=== PATIENT | male | born 1950 | race Caucasian/White ===

== ENCOUNTER 2016-08-04 09:11 | Emergency (ER) | payer OTHER ==
[~2016-08-04] VITALS: Ht 188 cm; Wt 113.6 kg
[~2016-08-04 09:11] MED LIST: ARICEPT10 MG PO; CENTRUM SILVER1 TAB PO; GLUCOPHAGE500 MG/TAB PO; GLUCOTROL10 MG PO; PREVAGEN PO; VITAMIN D 1001000 IU PO; ZESTRIL 20MG TA20 MG PO; [UNRECOGNIZED DRUG - OTHER]
[2016-08-04 09:30] VITALS: TEMP 97.6
[2016-08-04 09:32] LABS: BASO % 0.3 % (0.0-2.0); EOS # 0.2 (0.0-0.7); EOS % 1.8 % (0-4.0); GRAN # 9.4 (1.4-6.5); GRAN % 79.6 % (42.2-75.2); LYMPH # 1.3 (1.2-3.4); LYMPH % 11.2 % (20.0-51.0); MEAN CELL VOLUME 86 fl (80.0-100.0); MEAN CORPUSCULAR HGB CONC 35 g/dl (33.0-37.0); MEAN PLATELET VOLUME 9.7 fl (7.4-10.4); MONO # 0.8 (0.1-0.6); MONO % 6.6 % (1.7-9.3); PLATELET COUNT 177 K/mm3 (130-400); RED BLOOD COUNT 3.55 M/mm3 (4.20-5.60); REDCELL DISTRIBUTION WIDTH-CV 12.8 % (11.5-14.5); WHITE BLOOD COUNT 11.8 K/mm3 (4.8-10.8)
[2016-08-04 09:41] LABS: HEMATOCRIT 30.6 % (42.0-52.0); HEMOGLOBIN 10.6 g/dl (13.5-18.0); MEAN CORPUSCULAR HEMOGLOBIN 30 pg (27.0-31.0)
[2016-08-04 09:43] LABS: INR 1.2 (0.8-3.0); PROTHROMBIN TIME 12.9 SECONDS (9.7-12.8)
[2016-08-04 09:46] LABS: ADJUSTED CALCIUM 9.5 mg/dL (8.4-10.2); ALANINE AMINOTRANSFERASE 24 U/L (21-72); ALBUMIN 4.1 gm/dL (3.5-5.0); ALKALINE PHOSPHATASE 64 U/L (50-136); ANION GAP 17 mmol/L (7-16); BILIRUBIN,TOTAL 0.9 mg/dL (0.0-1.0); BLOOD UREA NITROGEN 40 mg/dL (9-20); CALCIUM 9.6 mg/dL (8.4-10.2); CARBON DIOXIDE 17 mmol/L (22-30); CHLORIDE 104 mmol/L (98-107); CREATININE, serum 2.04 mg/dL (0.66-1.25); GLUCOSE 206 mg/dL (74-106); PARTIAL THROMBOPLASTIN TIME 27.4 SECONDS (26.0-37.0); POTASSIUM 3.8 mmol/L (3.4-5.0); SODIUM 138 mmol/L (137-145); TOTAL PROTEIN 7.5 gm/dL (6.4-8.2)
[2016-08-04 10:01] LABS: TROPONIN-I < 0.012 ng/mL (0.000-0.034)
[2016-08-04 10:03] VITALS: BP 112/60; PULSE 62
== END 2016-08-04 10:03 | disposition short-term general hospital (02) ==
LOC: COL.ER 09:11
PROVIDERS: Emergency Medicine
DX: I21.19 ST elevation (STEMI) myocardial infarction involving other coronary artery of inferior wall (principal); I10 Essential (primary) hypertension; E11.9 Type 2 diabetes mellitus without complications; E78.5 Hyperlipidemia, unspecified; Z79.84 Long term (current) use of oral hypoglycemic drugs
CPT/HCPCS: J1644; J2270; J2405; J3101; J7030

== ENCOUNTER 2016-08-28 13:00 | Outpatient (RCR) | payer MEDICARE, OTHER | END 2016-11-14 | disposition home or self-care (01) | LOC: COL.CR | DX: I21.19 ST elevation (STEMI) myocardial infarction involving other coronary artery of inferior wall (principal); Z95.5 Presence of coronary angioplasty implant and graft ==

== ENCOUNTER 2018-06-16 10:43 | Emergency (ER) | payer MEDICARE, OTHER ==
[~2018-06-16] VITALS: Ht 190.5 cm; Wt 127.3 kg
[2018-06-16 10:46] VITALS: BP 134/71; TEMP 97.4
[2018-06-16] MEDS ORDERED: NOVOLOG 100U100 U/M1 SQ (11:07)
[2018-06-16] MEDS ORDERED: LANTUS100 U/ML SQ (11:07)
[2018-06-16] MEDS ORDERED: KAPSPARGO SPRIN25 MG (11:09)
[2018-06-16 11:10] LABS: ARTERIAL BLD GAS O2 SATURATION 91.1 % (92-100); ARTERIAL BLD GAS TCO2 CT 18.2; ARTERIAL BLOOD GAS BASE EXCESS -8.5 (-2-2); ARTERIAL BLOOD GAS HCO3 17.1 meq/L (22-26); ARTERIAL BLOOD GAS PCO2 35.7 mmHg (35-45); ARTERIAL BLOOD GAS PO2 65.5 mmHg (80-100)
[2018-06-16 11:38] LABS: BASO # 0.1 (0.0-0.2); BASO % 0.7 % (0.0-2.0); EOS # 0.3 (0.0-0.7); EOS % 4.5 % (0-4.0); GRAN # 4.6 (1.4-6.5); GRAN % 67.5 % (42.2-75.2); HEMATOCRIT 31.3 % (42.0-52.0); HEMOGLOBIN 10.5 g/dl (13.5-18.0); LYMPH # 1.4 (1.2-3.4); LYMPH % 19.9 % (20.0-51.0); MEAN CELL VOLUME 90 fl (80.0-100.0); MEAN CORPUSCULAR HEMOGLOBIN 30 pg (27.0-31.0); MEAN CORPUSCULAR HGB CONC 34 g/dl (33.0-37.0); MONO # 0.5 (0.1-0.6); MONO % 6.8 % (1.7-9.3); PLATELET COUNT 145 K/mm3 (130-400); RED BLOOD COUNT 3.49 M/mm3 (4.20-5.60); REDCELL DISTRIBUTION WIDTH-CV 12.7 % (11.5-14.5)
[2018-06-16 11:46] LABS: INR 1.2 (0.8-3.0); PROTHROMBIN TIME 13.3 SECONDS (9.7-12.8)
[2018-06-16 11:49] LABS: ALANINE AMINOTRANSFERASE 23 U/L (21-72); ALBUMIN 3.8 gm/dL (3.5-5.0); ALKALINE PHOSPHATASE 82 U/L (50-136); ANION GAP 10 mmol/L (7-16); AST,SGOT 22 U/L (15-37); BILIRUBIN,TOTAL 0.3 mg/dL (0.0-1.0); BLOOD UREA NITROGEN 39 mg/dL (9-20); CALCIUM 8.8 mg/dL (8.4-10.2); CARBON DIOXIDE 18 mmol/L (22-30); CHLORIDE 108 mmol/L (98-107); CREATININE, serum 2.28 mg/dL (0.66-1.25); GLUCOSE 263 mg/dL (74-106); POTASSIUM 4.5 mmol/L (3.4-5.0); SODIUM 136 mmol/L (137-145); TOTAL PROTEIN 7.1 gm/dL (6.4-8.2)
[2018-06-16 12:01] LABS: TROPONIN-I < 0.012 ng/mL (0.000-0.035)
[2018-06-16] MEDS ORDERED: PROSCAR 5MG5 MG PO (13:38)
[2018-06-16] MEDS ORDERED: LIPITOR 80MG80 MG PO (13:40)
[2018-06-16] MEDS ORDERED: NORVASC 10MG10 MG PO (13:41)
[2018-06-16] MEDS ORDERED: SODIUM BICARBO650 MG PO (13:41)
[2018-06-16] MEDS ORDERED: FLOMAX 0.40.4 MG/CAP PO (13:42)
[2018-06-16 14:45] VITALS: PULSE 89
== END 2018-06-16 14:45 | disposition short-term general hospital (02) ==
LOC: COL.ER 10:43
PROVIDERS: Family Medicine
DX: R55 Syncope and collapse (principal); E88.9 Metabolic disorder, unspecified; Z79.4 Long term (current) use of insulin; Z86.711 Personal history of pulmonary embolism
CPT/HCPCS: J7030

== ENCOUNTER 2018-07-04 10:40 | Emergency (ER) | payer MEDICARE, OTHER ==
[~2018-07-04] VITALS: Ht 188 cm; Wt 138.6 kg
[~2018-07-04 10:40] MED LIST changes: +FLOMAX 0.40.4 MG/CAP PO; +KAPSPARGO SPRIN25 MG; +LANTUS100 U/ML SQ; +LIPITOR 80MG80 MG PO; +NORVASC 10MG10 MG PO; +NOVOLOG 100U100 U/M1 SQ; +PROSCAR 5MG5 MG PO; +SODIUM BICARBO650 MG PO
[2018-07-04 10:41] VITALS: TEMP 96.7
[2018-07-04 11:25] LABS: BASO % 0.5 % (0.0-2.0); EOS # 0.2 (0.0-0.7); EOS % 2.7 % (0-4.0); GRAN # 5.9 (1.4-6.5); GRAN % 78.4 % (42.2-75.2); HEMATOCRIT 29.1 % (42.0-52.0); HEMOGLOBIN 9.8 g/dl (13.5-18.0); LYMPH # 0.9 (1.2-3.4); LYMPH % 11.7 % (20.0-51.0); MEAN CELL VOLUME 90 fl (80.0-100.0); MEAN CORPUSCULAR HEMOGLOBIN 30 pg (27.0-31.0); MEAN CORPUSCULAR HGB CONC 34 g/dl (33.0-37.0); MEAN PLATELET VOLUME 9.8 fl (7.4-10.4); MONO # 0.5 (0.1-0.6); MONO % 6.4 % (1.7-9.3); PLATELET COUNT 137 K/mm3 (130-400); RED BLOOD COUNT 3.22 M/mm3 (4.20-5.60); REDCELL DISTRIBUTION WIDTH-CV 13.1 % (11.5-14.5)
[2018-07-04 11:48] LABS: ALANINE AMINOTRANSFERASE 16 U/L (21-72); ALBUMIN 3.8 gm/dL (3.5-5.0); ALKALINE PHOSPHATASE 68 U/L (50-136); ANION GAP 11 mmol/L (7-16); AST,SGOT 23 U/L (15-37); BILIRUBIN,TOTAL 0.4 mg/dL (0.0-1.0); BLOOD UREA NITROGEN 41 mg/dL (9-20); CALCIUM 9.1 mg/dL (8.4-10.2); CARBON DIOXIDE 21 mmol/L (22-30); CHLORIDE 109 mmol/L (98-107); CREATININE, serum 2.35 mg/dL (0.66-1.25); GLUCOSE 134 mg/dL (74-106); POTASSIUM 4.1 mmol/L (3.4-5.0); SODIUM 141 mmol/L (137-145); TOTAL PROTEIN 6.9 gm/dL (6.4-8.2)
[2018-07-04 12:22] LABS: MAGNESIUM 1.7 mg/dL (1.6-2.3)
[2018-07-04 12:52] LABS: COLLECTION METHOD CLEAN CATCH
[2018-07-04 13:14] LABS: MUCOUS Present /lpf; PH 5 (5-8); SQUAMOUS EPITHELIAL 0-2 /hpf; URINE APPEARANCE Cloudy; URINE BACTERIA Occasional /hpf; URINE BILIRUBIN Negative (NEGATIVE); URINE BLOOD 1+ (NEGATIVE); URINE COLOR Yellow; URINE GLUCOSE Negative (NEGATIVE); URINE KETONE Negative (NEGATIVE); URINE LEUKOCYTE ESTERASE 3+ (NEGATIVE); URINE NITRATE Negative (NEGATIVE); URINE PROTEIN(semi-quant) 2+ (NEGATIVE); URINE UROBILINOGEN Negative (NEGATIVE)
[2018-07-04 13:17] LABS: C-REACTIVE PROTEIN 1.5 mg/dL (0.0-0.9); LIPASE 73 U/L (23-300)
[2018-07-04 13:19] LABS: TROPONIN-I < 0.012 ng/mL (0.000-0.035)
[2018-07-04] MEDS ORDERED: AMOXICILLIN/CLA1 TA1 PO (16:02)
[2018-07-04] MEDS ORDERED: ZOFRAN ODT4 MG PO (16:02)
[2018-07-04] MEDS ORDERED: NORCO 325 MG-51 TAB PO (16:02)
[2018-07-04 16:20] VITALS: BP 130/62; PULSE 56
== END 2018-07-04 16:22 | disposition home or self-care (01) ==
LOC: COL.ER 10:40
PROVIDERS: Emergency Medicine
DX: N12 Tubulo-interstitial nephritis, not specified as acute or chronic (principal); K57.92 Diverticulitis of intestine, part unspecified, without perforation or abscess without bleeding; E78.00 Pure hypercholesterolemia, unspecified; J44.9 Chronic obstructive pulmonary disease, unspecified; E11.9 Type 2 diabetes mellitus without complications; Z79.4 Long term (current) use of insulin; Z86.711 Personal history of pulmonary embolism
CPT/HCPCS: J0696; J3010; J7030

== ENCOUNTER 2018-11-11 11:30 | Emergency (ER) | payer MEDICARE ==
[~2018-11-11] VITALS: Ht 188 cm; Wt 129.5 kg
[~2018-11-11 11:30] MED LIST changes: +AMOXICILLIN/CLA1 TA1 PO; +NORCO 325 MG-51 TAB PO; +ZOFRAN ODT4 MG PO
[2018-11-11 11:34] VITALS: TEMP 97.3
[2018-11-11 12:36] LABS: BASO # 0.1 (0.0-0.2); BASO % 0.7 % (0.0-2.0); EOS # 0.2 (0.0-0.7); EOS % 2.2 % (0-4.0); GRAN # 4.6 (1.4-6.5); GRAN % 66.9 % (42.2-75.2); HEMATOCRIT 32.5 % (42.0-52.0); LYMPH # 1.4 (1.2-3.4); LYMPH % 20.9 % (20.0-51.0); MEAN CELL VOLUME 89 fl (80.0-100.0); MEAN CORPUSCULAR HEMOGLOBIN 30 pg (27.0-31.0); MEAN CORPUSCULAR HGB CONC 34 g/dl (33.0-37.0); MEAN PLATELET VOLUME 10.3 fl (7.4-10.4); MONO # 0.6 (0.1-0.6); PLATELET COUNT 154 K/mm3 (130-400); RED BLOOD COUNT 3.65 M/mm3 (4.20-5.60); REDCELL DISTRIBUTION WIDTH-CV 12.9 % (11.5-14.5)
[2018-11-11 12:43] LABS: ALANINE AMINOTRANSFERASE 15 U/L (21-72); ALBUMIN 4.1 gm/dL (3.5-5.0); ALKALINE PHOSPHATASE 79 U/L (50-136); ANION GAP 12 mmol/L (7-16); AST,SGOT 20 U/L (15-37); BILIRUBIN,TOTAL 0.4 mg/dL (0.0-1.0); BLOOD UREA NITROGEN 51 mg/dL (9-20); CALCIUM 9.4 mg/dL (8.4-10.2); CARBON DIOXIDE 18 mmol/L (22-30); CHLORIDE 111 mmol/L (98-107); CREATININE, serum 2.65 (0.66-1.25); GLUCOSE 114 mg/dL (74-106); LIPASE 131 U/L (23-300); POTASSIUM 4.2 mmol/L (3.4-5.0); SODIUM 141 mmol/L (137-145); TOTAL PROTEIN 7.4 gm/dL (6.4-8.2)
[2018-11-11 13:05] LABS: TROPONIN-I < 0.012 ng/mL (0.000-0.035)
[2018-11-11 17:00] VITALS: BP 132/81
[2018-11-11 17:30] VITALS: PULSE 55
== END 2018-11-11 17:35 | disposition home or self-care (01) ==
LOC: COL.ER 11:30
PROVIDERS: Emergency Medicine
DX: E11.9 Type 2 diabetes mellitus without complications (principal); R10.0 Acute abdomen; I10 Essential (primary) hypertension; E11.649 Type 2 diabetes mellitus with hypoglycemia without coma; Z91.14 Patient's other noncompliance with medication regimen; Z79.4 Long term (current) use of insulin; Z87.891 Personal history of nicotine dependence
CPT/HCPCS: J2270; J2405; J2550; J7030

== ENCOUNTER 2019-03-24 10:59 | Emergency (ER) | payer OTHER ==
[~2019-03-24] VITALS: Ht 188 cm; Wt 127.3 kg
[2019-03-24 11:07] VITALS: BP 172/88; TEMP 97
[2019-03-24] MEDS ORDERED: BACTROBAN15 GM TOP (11:38)
[2019-03-24 11:51] VITALS: PULSE 68
== END 2019-03-24 11:50 | disposition home or self-care (01) ==
LOC: COL.ER 10:59
DX: L01.00 Impetigo, unspecified (principal); E11.9 Type 2 diabetes mellitus without complications; I10 Essential (primary) hypertension; Z87.891 Personal history of nicotine dependence; Z79.4 Long term (current) use of insulin

== ENCOUNTER 2019-05-07 16:05 | Emergency (ER) | payer OTHER ==
[~2019-05-07] VITALS: Ht 188 cm; Wt 126.4 kg
[~2019-05-07 16:05] MED LIST changes: +BACTROBAN15 GM TOP
[2019-05-07 16:22] VITALS: BP 133/83; PULSE 67; TEMP 97.2
== END 2019-05-07 16:30 | disposition home or self-care (01) ==
LOC: COL.ER 16:05
DX: Z23 Encounter for immunization (principal)

== ENCOUNTER 2019-05-11 04:53 | Emergency (ER) | payer OTHER ==
[~2019-05-11] VITALS: Ht 188 cm; Wt 126.4 kg
[2019-05-11 05:04] VITALS: BP 161/78; TEMP 97.6
[2019-05-11 06:13] LABS: BASO # 0.1 (0.0-0.2); BASO % 0.6 % (0.0-2.0); EOS # 0.3 (0.0-0.7); EOS % 3.9 % (0-4.0); GRAN # 5.8 (1.4-6.5); LYMPH # 1.5 (1.2-3.4); LYMPH % 17.7 % (20.0-51.0); MEAN CELL VOLUME 87 fl (80.0-100.0); MEAN CORPUSCULAR HGB CONC 33 g/dl (33.0-37.0); MONO # 0.7 (0.1-0.6); MONO % 8.4 % (1.7-9.3); PLATELET COUNT 180 K/mm3 (130-400); RED BLOOD COUNT 3.45 M/mm3 (4.20-5.60); REDCELL DISTRIBUTION WIDTH-CV 13.2 % (11.5-14.5)
[2019-05-11 06:26] LABS: ALBUMIN 3.9 gm/dL (3.5-5.0); BILIRUBIN,TOTAL 0.2 mg/dL (0.0-1.0); CALCIUM 9.3 mg/dL (8.4-10.2); CREATININE, serum 2.67 (0.66-1.25); POTASSIUM 4.1 mmol/L (3.4-5.0); TOTAL PROTEIN 7.4 gm/dL (6.4-8.2)
[2019-05-11 06:45] LABS: HEMOGLOBIN 9.9 g/dl (13.5-18.0); MEAN CORPUSCULAR HEMOGLOBIN 29 pg (27.0-31.0)
[2019-05-11] MEDS ORDERED: PROAIR HFA0.09 MG/AC IH (06:56)
[2019-05-11] MEDS ORDERED: ZITHROMAX 250M250 MG PO (06:56)
[2019-05-11] MEDS ORDERED: PREDNISONE20 MG PO (06:56)
[2019-05-11 07:01] VITALS: PULSE 66
== END 2019-05-11 07:15 | disposition home or self-care (01) ==
LOC: COL.ER 04:53
PROVIDERS: Emergency Medicine
DX: J44.1 Chronic obstructive pulmonary disease with (acute) exacerbation (principal); J06.9 Acute upper respiratory infection, unspecified; E11.22 Type 2 diabetes mellitus with diabetic chronic kidney disease; N18.9 Chronic kidney disease, unspecified; Z79.4 Long term (current) use of insulin

== ENCOUNTER 2020-03-22 15:48 | Inpatient (IN) | payer OTHER ==
[~2020-03-22] VITALS: Ht 188 cm; Wt 124.8 kg
[~2020-03-22 15:48] MED LIST changes: +PREDNISONE20 MG PO; +PROAIR HFA0.09 MG/AC IH; +ZITHROMAX 250M250 MG PO
[2020-03-22 16:04] LABS: BASO % 0.3 % (0.0-2.0); EOS # 0.2 (0.0-0.7); EOS % 2.2 % (0-4.0); GRAN # 9.3 (1.4-6.5); GRAN % 88.1 % (42.2-75.2); HEMOGLOBIN 10.5 g/dl (13.5-18.0); LYMPH # 0.8 (1.2-3.4); LYMPH % 7.8 % (20.0-51.0); MEAN CELL VOLUME 87 fl (80.0-100.0); MEAN CORPUSCULAR HEMOGLOBIN 29 pg (27.0-31.0); MEAN CORPUSCULAR HGB CONC 34 g/dl (33.0-37.0); MEAN PLATELET VOLUME 9.9 fl (7.4-10.4); MONO # 0.1 (0.1-0.6); MONO % 1.2 % (1.7-9.3); PLATELET COUNT 192 K/mm3 (130-400); RED BLOOD COUNT 3.57 M/mm3 (4.20-5.60); REDCELL DISTRIBUTION WIDTH-CV 13.3 % (11.5-14.5)
[2020-03-22 16:05] LABS: HEMATOCRIT 30.9 % (42.0-52.0)
[2020-03-22 16:08] LABS: INR 1.1 (0.8-3.0); PROTHROMBIN TIME 12.1 SECONDS (9.7-12.8)
[2020-03-22 16:16] LABS: ALANINE AMINOTRANSFERASE 18 U/L (4-49); ALBUMIN 4.3 gm/dL (3.5-5.0); ALKALINE PHOSPHATASE 97 U/L (50-136); ANION GAP 14 mmol/L (7-16); AST,SGOT 23 U/L (15-37); BILIRUBIN,TOTAL 0.4 mg/dL (0.0-1.0); BLOOD UREA NITROGEN 42 mg/dL (9-20); C-REACTIVE PROTEIN 1.4 mg/dL (0.0-0.9); CALCIUM 8.9 mg/dL (8.4-10.2); CARBON DIOXIDE 15 mmol/L (22-30); CHLORIDE 106 mmol/L (98-107); CREATININE, serum 2.54 (0.66-1.25); GLUCOSE 277 mg/dL (74-106); LIPASE 114 U/L (23-300); POTASSIUM 4.2 mmol/L (3.4-5.0); SODIUM 135 mmol/L (137-145); TOTAL PROTEIN 7.8 gm/dL (6.4-8.2)
[2020-03-22 16:25] LABS: TROPONIN-I < 0.012 ng/mL (0.000-0.035)
[2020-03-22 17:47] LABS: COLLECTION METHOD CLEAN CATCH
[2020-03-22 17:58] LABS: MUCOUS Present /lpf; PH 5 (5-8); SQUAMOUS EPITHELIAL None Seen /hpf; URINE APPEARANCE Cloudy; URINE BACTERIA Many /hpf; URINE BILIRUBIN Negative (NEGATIVE); URINE BLOOD 3+ (NEGATIVE); URINE COLOR Yellow; URINE GLUCOSE 3+ (NEGATIVE); URINE KETONE Negative (NEGATIVE); URINE LEUKOCYTE ESTERASE 1+ (NEGATIVE); URINE NITRATE Negative (NEGATIVE); URINE PROTEIN(semi-quant) 3+ (NEGATIVE); URINE RBC >50 /hpf; URINE UROBILINOGEN Negative (NEGATIVE)
[2020-03-22 22:38] VITALS: BP 99/60; PULSE 74; TEMP 98.1
[2020-03-22] MEDS ORDERED: GLUCOPHAGE1000 MG PO (22:57)
--- NOTE | 2020-03-22 22:58 | NUR ---
Vancomycin Initial Dosing Pharmacy Note Ordering provider: Amena Benton MD Indication/duration: UTI, 7 days Relevant comorbidities: CKD LABS: WBC = 10.5, SCr = 2.54, est CrCl = 38 Recommendation: Will draw troughs and adjust based on levels. Loading dose: 1 gram @ 2000 plus 1.5 grams scheduled for 0 Maintenance dose: 2 grams every 24 hours Trough goal: 10-15 ug/mL
--- NOTE | 2020-03-22 23:00 | NUR ---
Arrived to medical floor. Assessment complete. Lungs clear. Heart sounds normal. Bowels active x4. Pulses present throughout. Bilateral lower ext edema +1. IV right forearm without complications. Denies pain at this time. Denies needs. Orientated to medical floor. All questions answered. Unsure of medication list. not home tonight. will provide medication list in AM. Ellen notified.
[2020-03-23] VITALS (268 sets, daily range): BP systolic 108–181; BP diastolic 53–106; PULSE 58–114; TEMP 97.4–99.8; O2SAT 85–98
--- NOTE | 2020-03-23 02:15 | NUR ---
Resting in bed. Denies needs. Call light in reach.
--- NOTE | 2020-03-23 05:27 | NUR ---
Patient had uneventful night. Resting in bed this Am. Call light in reach.
[2020-03-23 06:42] LABS: BASO # 0.1 (0.0-0.2); BASO % 0.5 % (0.0-2.0); EOS # 0.2 (0.0-0.7); GRAN # 8.8 (1.4-6.5); GRAN % 80.7 % (42.2-75.2); HEMATOCRIT 27.3 % (42.0-52.0); LYMPH # 1.2 (1.2-3.4); LYMPH % 10.7 % (20.0-51.0); MEAN CELL VOLUME 88 fl (80.0-100.0); MEAN CORPUSCULAR HEMOGLOBIN 29 pg (27.0-31.0); MEAN CORPUSCULAR HGB CONC 33 g/dl (33.0-37.0); MEAN PLATELET VOLUME 10.4 fl (7.4-10.4); MONO # 0.6 (0.1-0.6); MONO % 5.7 % (1.7-9.3); PLATELET COUNT 169 K/mm3 (130-400); RED BLOOD COUNT 3.09 M/mm3 (4.20-5.60); REDCELL DISTRIBUTION WIDTH-CV 13.7 % (11.5-14.5)
[2020-03-23 06:57] LABS: CREATININE, serum 2.64 (0.66-1.25)
--- NOTE | 2020-03-23 07:13 | NUR ---
Report given to DEVIN De La Cruz
--- NOTE | 2020-03-23 07:40 | NUR ---
Pt. alert, sitting in bed. Assessment as charted. Bilat. lower extremeties. 1+ pitting edema noted. Pt. assisted to recliner to elevate legs. IV site patent Rt. hand. NS infusing @ 125mL/hr. Pt. voices no acute concerns.
--- NOTE | 2020-03-23 08:00 | NUR ---
PT PLEASANT, AOX4, REPORTS PAIN 3/10 IN LOW BACK, PT TOOK PILLS WITH WATER, IV MEDICATION HANGING, VITALS TAKEN, ASSESSMENT PERFORMED, NO OTHER NEEDS AT THIS TIME.
--- NOTE | 2020-03-23 10:21 | NUR ---
DEVONTE met with the patient to discuss discharge plan. The patient lives in [place] with his , Jaylene (ph#[phone]). He reports independence with ADLs and has a walker and CPAP from the [facility]. The patient receives primary care at the [facility]. He states his provider is a Dr. Cordero. He receives his medications by mail from the [facility]. The patient does not have a DPOA-HC in EMR, but he states that he does have one completed and that his is his DPOA-HC. The patient plans to return home with his upon discharge. The patient's , Jaylene, then entered the patient's room. Jaylene confirmed the above information. Jaylene states that she would be interested in some home health services for the patient. She states that she would like for an RN to come out and help with medication management and set up. The patient has [employer] for insurance. DEVONTE informed the patient and Jaylene how the [facility] will have to approve this. The patient and Jaylene verbalized understanding. DEVONTE contacted the [facility]. The salon receptionist reports that Dr. Cordero's last day was last Sunday and that the patient is now assigned to the provider, Hector Watson. The salon receptionist transferred DEVONTE to Walter's RN. DEVONTE left a voicemail for the RN. DEVONTE to continue to follow.
[2020-03-23] MEDS ORDERED: SINGULAIR 110 MG/TAB PO (11:09)
[2020-03-23] MEDS ORDERED: ASPIRIN E.C. 8181 MG PO (11:10)
[2020-03-23] MEDS ORDERED: NORCO 325 MG-7.1 TAB PO (11:26)
--- NOTE | 2020-03-23 13:15 | NUR ---
Assessment complete. Pt. awake and pleasent. Pt. alert and oriented, but confused about why he is here. Eventually recalled for UTI. Pt. has +1 edema bilateral LE. INT 125mL/hr clear dry and intact.
--- NOTE | 2020-03-23 14:43 | NUR ---
Shameka, RN with the [facility], returned DEVONTE's phone call. Shameka states that they will need orders for home health detention. She states that they will then set this up and follow up with the patient and his . . DEVONTE to update the patient and his .
--- NOTE | 2020-03-23 15:00 | NUR ---
entered pt room, pt shaking and groaning. pt had 5 blankets covering him and reported being very cold. pt able to respond to me when asking questions. vital signs abnormal, physician notified, pt to be transferred to icu. pt ripped out iv attempting to dry heave into trashcan. report called to ICU nurse. 1899 pt taken down to unit with chart.
--- NOTE | 2020-03-23 16:21 | NUR ---
PT HAD BLACK TARRY STOOL, PT NOT ON IRON, PT REPORTED THIS GOING ON FOR THE PAST FEW DAYS. PHYSICIAN NOTIFIED, HAT PLACED IN TOILET, HEMOCULT ORDERED.
[2020-03-23 17:41] LABS: ARTERIAL BLD GAS O2 SATURATION 95.4 % (92-100); ARTERIAL BLD GAS TCO2 CT 12.4; ARTERIAL BLOOD GAS BASE EXCESS -12.6 (-2-2); ARTERIAL BLOOD GAS HCO3 11.7 meq/L (22-26); ARTERIAL BLOOD GAS PCO2 23.2 mmHg (35-45); ARTERIAL BLOOD GAS PO2 79.4 mmHg (80-100); ARTERIAL BLOOD GAS pH 7.32 (7.35-7.45)
[2020-03-23 18:12] LABS: INR 1.1 (0.8-3.0)
--- NOTE | 2020-03-23 21:39 | NUR ---
PT WITH CRITICAL TROPONIN OF 0.587 CALLED TO RONEN HERNANDEZ. NEW ORDERS TO CONSULT CARDIOLOGY.
--- NOTE | 2020-03-23 21:39 | NUR ---
PT WITH BG FROM 205 TO 90, RONEN HERNANDEZ AWARE, SEE NEW ORDERS FOR D5.
--- NOTE | 2020-03-23 21:43 | NUR ---
CARDIOLOGY NOTIFIED OF NEW CONSULT AND TROPONIN CHANGES, DR. COLE WOULD LIKE NEXT TROPONIN AT 0600 AND WILL SEE IN THE MORNING.
[2020-03-23 22:35] LABS: ARTERIAL BLD GAS O2 SATURATION 94.8 % (92-100); ARTERIAL BLD GAS TCO2 CT 16.6; ARTERIAL BLOOD GAS BASE EXCESS -9.2 (-2-2); ARTERIAL BLOOD GAS HCO3 15.7 meq/L (22-26); ARTERIAL BLOOD GAS PCO2 30.3 mmHg (35-45); ARTERIAL BLOOD GAS PO2 76.1 mmHg (80-100); ARTERIAL BLOOD GAS pH 7.33 (7.35-7.45)
[2020-03-24] VITALS (358 sets, daily range): BP systolic 128–180; BP diastolic 65–86; PULSE 64–83; TEMP 97.8–99.6; O2SAT 79–99
[2020-03-24 04:56] LABS: ARTERIAL BLD GAS O2 SATURATION 96.2 % (92-100); ARTERIAL BLD GAS TCO2 CT 15.2; ARTERIAL BLOOD GAS BASE EXCESS -10.5 (-2-2); ARTERIAL BLOOD GAS HCO3 14.3 meq/L (22-26); ARTERIAL BLOOD GAS PO2 87.7 mmHg (80-100); ARTERIAL BLOOD GAS pH 7.31 (7.35-7.45)
--- NOTE | 2020-03-24 05:25 | NUR ---
called chantal and spoke with physican about abg and vbg results, as long as patient is comfortable was told to keep monitoring results.
[2020-03-24 05:34] LABS: INR 1.1 (0.8-3.0); PROTHROMBIN TIME 12.2 SECONDS (9.7-12.8)
[2020-03-24 05:40] LABS: ALBUMIN 3.1 gm/dL (3.5-5.0); BILIRUBIN,TOTAL 0.3 mg/dL (0.0-1.0); CALCIUM 7.5 mg/dL (8.4-10.2); CREATININE, serum 2.72 (0.66-1.25); POTASSIUM 3.5 mmol/L (3.4-5.0)
[2020-03-24 05:41] LABS: BASO % 0.3 % (0.0-2.0); EOS # 0.2 (0.0-0.7); EOS % 2.6 % (0-4.0); GRAN # 6.6 (1.4-6.5); GRAN % 74.7 % (42.2-75.2); LYMPH # 1.2 (1.2-3.4); LYMPH % 13.6 % (20.0-51.0); MEAN CELL VOLUME 91 fl (80.0-100.0); MEAN CORPUSCULAR HGB CONC 33 g/dl (33.0-37.0); MEAN PLATELET VOLUME 10.3 fl (7.4-10.4); MONO # 0.7 (0.1-0.6); MONO % 8.2 % (1.7-9.3); PLATELET COUNT 145 K/mm3 (130-400); RED BLOOD COUNT 2.77 M/mm3 (4.20-5.60); REDCELL DISTRIBUTION WIDTH-CV 13.7 % (11.5-14.5)
[2020-03-24 05:42] LABS: HEMATOCRIT 25.2 % (42.0-52.0); HEMOGLOBIN 8.3 g/dl (13.5-18.0); MEAN CORPUSCULAR HEMOGLOBIN 30 pg (27.0-31.0)
[2020-03-24 06:14] LABS: TROPONIN-I 0.495 ng/mL (0.000-0.035)
--- NOTE | 2020-03-24 11:20 | NUR ---
Tanbark Laborer attended clinical rounds with the team. The patient's came to visit the patient after rounds. Hospitalist met with her to follow up.
--- NOTE | 2020-03-24 21:00 | NUR ---
Patient alert and partially oriented to self and place. Is restless but mostly easily directed. Has attempted to get up from bed multiple times on his own. Bed alarm on. Reminded patient to please use call light. Patient states "ok I will" but has difficulty remembering instructions due to baseline dementia. Call light left within reach.
--- NOTE | 2020-03-24 22:30 | NUR ---
Patient restless and wanting to get up from bed to chair and back multiple times. Pulling at wires and loya catheter; states multiple times "I have to go to the bathroom!" Patient reminded that he has a catheter and demonstrated how it drains. Patient states he understands but will ask again after a few minutes. Patient also makes frequent and very loud vocalizations and moans. Reports lower back pain which is chronic. PRN [place] administered. Patient becomes also becomes very agitated when BP is taken. Systolics running in the 190's. Hospitalist notified of anxiety and elevated BP's; received PRN order for Ativan. Will continue to monitor. Call light left within reach and bed alarm on.
[2020-03-25] VITALS (238 sets, daily range): BP systolic 145–179; BP diastolic 67–823; PULSE 69–88; TEMP 98.3–99.7; O2SAT 74–100
[2020-03-25 04:46] LABS: BASO # 0.1 (0.0-0.2); BASO % 0.6 % (0.0-2.0); EOS # 0.2 (0.0-0.7); EOS % 2.3 % (0-4.0); GRAN # 5.8 (1.4-6.5); GRAN % 74.2 % (42.2-75.2); LYMPH % 12.7 % (20.0-51.0); MEAN CELL VOLUME 90 fl (80.0-100.0); MEAN CORPUSCULAR HGB CONC 33 g/dl (33.0-37.0); MEAN PLATELET VOLUME 10.1 fl (7.4-10.4); MONO # 0.8 (0.1-0.6); MONO % 9.7 % (1.7-9.3); PLATELET COUNT 133 K/mm3 (130-400); RED BLOOD COUNT 2.71 M/mm3 (4.20-5.60); REDCELL DISTRIBUTION WIDTH-CV 13.7 % (11.5-14.5)
[2020-03-25 04:49] LABS: HEMATOCRIT 24.3 % (42.0-52.0); MEAN CORPUSCULAR HEMOGLOBIN 30 pg (27.0-31.0)
[2020-03-25 04:58] LABS: ALBUMIN 3.2 gm/dL (3.5-5.0); BILIRUBIN,TOTAL 0.4 mg/dL (0.0-1.0); CALCIUM 7.7 mg/dL (8.4-10.2); CREATININE, serum 2.49 (0.66-1.25); POTASSIUM 3.6 mmol/L (3.4-5.0); TOTAL PROTEIN 6.1 gm/dL (6.4-8.2)
[2020-03-25 05:00] LABS: INR 1.2 (0.8-3.0); PROTHROMBIN TIME 13.4 SECONDS (9.7-12.8)
[2020-03-25 07:50] LABS: PHOSPHOROUS 3.1 mg/dL (2.5-4.5)
--- NOTE | 2020-03-25 09:05 | NUR ---
Inking Machine Tender attended clinical rounds with the team. The patient to transfer to the floor this day.
--- NOTE | 2020-03-25 12:39 | NUR ---
Dolan catheter discontinued at 1230 per doctors order.
[2020-03-25 17:40] LABS: HEMATOCRIT 25.1 % (42.0-52.0); HEMOGLOBIN 8.3 g/dl (13.5-18.0)
[2020-03-26] VITALS (7 sets, daily range): BP systolic 127–178; BP diastolic 56–90; PULSE 57–81; TEMP 97.8–99.2
[2020-03-26 07:05] LABS: BASO % 0.6 % (0.0-2.0); EOS # 0.4 (0.0-0.7); EOS % 5.6 % (0-4.0); GRAN # 4.6 (1.4-6.5); GRAN % 67.2 % (42.2-75.2); LYMPH # 1.1 (1.2-3.4); LYMPH % 16.5 % (20.0-51.0); MEAN CELL VOLUME 88 fl (80.0-100.0); MEAN CORPUSCULAR HGB CONC 33 g/dl (33.0-37.0); MEAN PLATELET VOLUME 10.5 fl (7.4-10.4); MONO # 0.7 (0.1-0.6); MONO % 9.5 % (1.7-9.3); PLATELET COUNT 136 K/mm3 (130-400); RED BLOOD COUNT 2.67 M/mm3 (4.20-5.60); REDCELL DISTRIBUTION WIDTH-CV 13.5 % (11.5-14.5)
[2020-03-26 07:12] LABS: HEMATOCRIT 23.6 % (42.0-52.0); HEMOGLOBIN 7.7 g/dl (13.5-18.0); MEAN CORPUSCULAR HEMOGLOBIN 29 pg (27.0-31.0)
--- NOTE | 2020-03-26 07:15 | NUR ---
CHANGE OF SHIFT REPORT GIVEN TO DAY SHIFT NURSEGAEL.
--- NOTE | 2020-03-26 07:15 | NUR ---
CHANGE OF SHIFT REPORT GIVEN TO DAY SHIFT NURSEPOOJA.
[2020-03-26 07:25] LABS: ALBUMIN 3.1 gm/dL (3.5-5.0); BILIRUBIN,TOTAL 0.5 mg/dL (0.0-1.0); CREATININE, serum 2.26 (0.66-1.25); POTASSIUM 3.6 mmol/L (3.4-5.0); TOTAL PROTEIN 6.1 gm/dL (6.4-8.2)
--- NOTE | 2020-03-26 08:19 | NUR ---
Patient sitting up in chair. He is reclined comfortably. Denies pain. Did well with breakfast. Very plesant. Leila Patel has rounded and seen patient. Medication changes made and reviewed with patient. He is voiding using urinal. Central line flushed & good blood return. Will monitor
--- NOTE | 2020-03-26 10:00 | NUR ---
Patient significant other at bedside. Patient reports a pain pill for chronic back & knee pain. Patient wanting to shower today. Jasiel Loja to assist.
--- NOTE | 2020-03-26 18:12 | NUR ---
Patient sitting up in chair eatin dinner & continues to do well. denies needs.
--- NOTE | 2020-03-26 20:00 | NUR ---
Report received, assumed care for shipper and receiving. Assessment complete. A&Ox3-drowsy. VS stable. Denies pain/nausea/shortness of breath. Voiding without difficulty-clear yellow urine. R IJ-3 ports flush without difficulty. Plan of care discussed for this shift to include HS meds/calling for needs. Verbalizes understanding-denies questions/concerns. Call light in reach. Will monitor.
[2020-03-27] VITALS: BP 132/54; PULSE 69; TEMP 98.8
[2020-03-27 04:51] VITALS: BP 125/66; PULSE 73; TEMP 97.8
--- NOTE | 2020-03-27 06:00 | NUR ---
Noted to be making a moaning/cough sound heard at nurses station. This nurse to room-patient is sleeping. Easily awakens-denies pain/shortness of breath. States he has been told on several occasions he makes these noises during sleep. Call light in reach. Will monitor.
[2020-03-27 06:38] LABS: BASO # 0.1 (0.0-0.2); EOS # 0.5 (0.0-0.7); EOS % 8.7 % (0-4.0); GRAN # 3.7 (1.4-6.5); GRAN % 59.8 % (42.2-75.2); LYMPH # 1.3 (1.2-3.4); LYMPH % 20.7 % (20.0-51.0); MEAN CELL VOLUME 88 fl (80.0-100.0); MEAN CORPUSCULAR HGB CONC 33 g/dl (33.0-37.0); MEAN PLATELET VOLUME 10.7 fl (7.4-10.4); MONO # 0.6 (0.1-0.6); MONO % 9.5 % (1.7-9.3); PLATELET COUNT 154 K/mm3 (130-400); RED BLOOD COUNT 2.68 M/mm3 (4.20-5.60); REDCELL DISTRIBUTION WIDTH-CV 13.4 % (11.5-14.5)
[2020-03-27 06:46] LABS: HEMATOCRIT 23.7 % (42.0-52.0); HEMOGLOBIN 7.8 g/dl (13.5-18.0); MEAN CORPUSCULAR HEMOGLOBIN 29 pg (27.0-31.0)
[2020-03-27 07:00] VITALS: BP 156/87; PULSE 82; TEMP 97.5
[2020-03-27 07:08] LABS: CALCIUM 8.2 mg/dL (8.4-10.2); CREATININE, serum 2.21 (0.66-1.25); POTASSIUM 3.4 mmol/L (3.4-5.0)
--- NOTE | 2020-03-27 09:11 | NUR ---
Patient sitting up in chair. Reports he is still hungry after breakfast. more cereal given. Pain manged. Will monitor
[2020-03-27] MEDS ORDERED: CIPRO 500MG TA500 MG PO (10:05)
[2020-03-27] MEDS ORDERED: NORCO 325 MG-51 TAB PO (10:54)
--- NOTE | 2020-03-27 11:35 | NUR ---
Patient ready for discharge. rounded & orders obtained. Discharge information given to patient & his . We reviewed home medication list & last dose taken & changes in insulin regiment. Patient to get Cipro from [facility] and take starting tonight. Patient aware he needs to [facility] and keep [facility]. Patient already had urology appt scheduled for to 09 of April. Central line was removed & he tolerated well. Patient wheeled out with all belongings. His taken him home
== END 2020-03-27 11:35 | disposition home or self-care (01) | DRG 871 ==
LOC: COL.ER 15:48 → MEDICAL 19:33 → ICU 03-23 17:24 → SURG 03-25 11:45
PROVIDERS: Emergency Medicine; Internal Medicine; Internal Medicine Pulmonary Disease; Physician Assistant; ADMIT Student in an Organized Health Care Education/Training Program
PROC: 02HV33Z Insertion of Infusion Device into Superior Vena Cava, Percutaneous Approach (ICD-10-PCS; principal; 2020-03-23)
DX: A41.9 Sepsis, unspecified organism (principal); I21.A1 Myocardial infarction type 2; N12 Tubulo-interstitial nephritis, not specified as acute or chronic; G93.40 Encephalopathy, unspecified; N18.4 Chronic kidney disease, stage 4 (severe); R65.20 Severe sepsis without septic shock; E11.22 Type 2 diabetes mellitus with diabetic chronic kidney disease; N40.0 Benign prostatic hyperplasia without lower urinary tract symptoms; E78.5 Hyperlipidemia, unspecified; J44.9 Chronic obstructive pulmonary disease, unspecified; I25.10 Atherosclerotic heart disease of native coronary artery without angina pectoris; D63.1 Anemia in chronic kidney disease; F03.90 Unspecified dementia, unspecified severity, without behavioral disturbance, psychotic disturbance, mood disturbance, and anxiety; Z20.828 Contact with and (suspected) exposure to other viral communicable diseases; Z95.5 Presence of coronary angioplasty implant and graft; Z87.891 Personal history of nicotine dependence; Z79.4 Long term (current) use of insulin
CPT/HCPCS: 99222-AI; 99232-AI; 99233-AI; G0378; J0696; J1644; J1815; J2060; J2185; J2405; J2543; J3370; J3475; J7030; J7040; J7042; J7050; J7120

== ENCOUNTER 2020-07-10 16:36 | Inpatient (IN) | payer OTHER ==
[~2020-07-10] VITALS: Ht 188 cm; Wt 95.5 kg
[~2020-07-10 16:36] MED LIST changes: +ASPIRIN E.C. 8181 MG PO; +CIPRO 500MG TA500 MG PO; +GLUCOPHAGE1000 MG PO; +NORCO 325 MG-7.1 TAB PO; +SINGULAIR 110 MG/TAB PO
[2020-07-10 17:02] LABS: COLLECTION METHOD CLEAN CATCH
[2020-07-10 17:04] LABS: BASO # 0.1 (0.0-0.2); BASO % 0.7 % (0.0-2.0); EOS # 0.1 (0.0-0.7); GRAN # 4.7 (1.4-6.5); GRAN % 67.5 % (42.2-75.2); LYMPH # 1.5 (1.2-3.4); LYMPH % 21.2 % (20.0-51.0); MEAN CELL VOLUME 85 fl (80.0-100.0); MEAN CORPUSCULAR HEMOGLOBIN 29 pg (27.0-31.0); MEAN CORPUSCULAR HGB CONC 35 g/dl (33.0-37.0); MEAN PLATELET VOLUME 10.8 fl (7.4-10.4); MONO # 0.6 (0.1-0.6); MONO % 8.3 % (1.7-9.3); PLATELET COUNT 175 K/mm3 (130-400); RED BLOOD COUNT 3.76 M/mm3 (4.20-5.60); REDCELL DISTRIBUTION WIDTH-CV 13.9 % (11.5-14.5)
[2020-07-10 17:05] LABS: HEMATOCRIT 31.9 % (42.0-52.0)
[2020-07-10 17:07] LABS: PROTHROMBIN TIME 11.6 SECONDS (9.7-12.8)
[2020-07-10 17:13] LABS: PH 6 (5-8); SQUAMOUS EPITHELIAL None Seen /hpf; URINE APPEARANCE Clear; URINE BACTERIA None Seen /hpf; URINE BILIRUBIN Negative (NEGATIVE); URINE BLOOD Negative (NEGATIVE); URINE COLOR Yellow; URINE GLUCOSE 3+ (NEGATIVE); URINE KETONE Negative (NEGATIVE); URINE LEUKOCYTE ESTERASE Negative (NEGATIVE); URINE NITRATE Negative (NEGATIVE); URINE PROTEIN(semi-quant) 3+ (NEGATIVE); URINE RBC 0-2 /hpf; URINE UROBILINOGEN Negative (NEGATIVE)
[2020-07-10 17:14] LABS: ALBUMIN 3.9 gm/dL (3.5-5.0); BILIRUBIN,TOTAL 0.4 mg/dL (0.0-1.0); CALCIUM 8.9 mg/dL (8.4-10.2); CREATININE, serum 2.93 (0.66-1.25); POTASSIUM 4.4 mmol/L (3.4-5.0)
[2020-07-10 18:01] LABS: TRICYCLIC ANTIDEPRESS URINE NEGATIVE
[2020-07-10 18:10] LABS: MAGNESIUM 1.8 mg/dL (1.6-2.3)
[2020-07-10 18:10] LABS: ARTERIAL BLD GAS O2 SATURATION 94.8 % (92-100); ARTERIAL BLOOD GAS BASE EXCESS -6.2 (-2-2); ARTERIAL BLOOD GAS HCO3 18.1 meq/L (22-26); ARTERIAL BLOOD GAS PCO2 31.6 mmHg (35-45); ARTERIAL BLOOD GAS PO2 71.6 mmHg (80-100); ARTERIAL BLOOD GAS pH 7.38 (7.35-7.45)
[2020-07-10 18:23] LABS: ACETONE,SERUM NEGATIVE
--- NOTE | 2020-07-10 22:17 | NUR ---
Awake, alert, oriented x 4, able to follow all commands, uncontrolled movement to L upper extremity at rest, able to follow commands with L upper extremity, BLE +1 trace edema noted, respirations even and unlabored, co 1/10 pain to R ribs, admits to recent fall on ice, no bruising evident at this time.
[2020-07-10 22:38] VITALS: BP 135/73; PULSE 85; TEMP 98.5
[2020-07-10 23:39] VITALS: BP 129/70; PULSE 69; TEMP 97.1
[2020-07-11] VITALS (7 sets, daily range): BP systolic 96–148; BP diastolic 37–90; PULSE 40–104; TEMP 96.9–98.5
[2020-07-11 06:45] LABS: ALBUMIN 3.5 gm/dL (3.5-5.0); BILIRUBIN,TOTAL 0.6 mg/dL (0.0-1.0); CALCIUM 8.6 mg/dL (8.4-10.2); CREATININE, serum 2.75 (0.66-1.25); POTASSIUM 3.9 mmol/L (3.4-5.0); TOTAL PROTEIN 6.5 gm/dL (6.4-8.2)
[2020-07-11 07:52] LABS: BASO # 0.1 (0.0-0.2); BASO % 1.1 % (0.0-2.0); EOS # 0.2 (0.0-0.7); HEMOGLOBIN 10.7 g/dl (13.5-18.0); LYMPH # 1.8 (1.2-3.4); LYMPH % 32.2 % (20.0-51.0); MEAN CELL VOLUME 86 fl (80.0-100.0); MEAN CORPUSCULAR HEMOGLOBIN 29 pg (27.0-31.0); MEAN CORPUSCULAR HGB CONC 34 g/dl (33.0-37.0); MEAN PLATELET VOLUME 10.4 fl (7.4-10.4); MONO # 0.6 (0.1-0.6); MONO % 10.3 % (1.7-9.3); PLATELET COUNT 146 K/mm3 (130-400); RED BLOOD COUNT 3.69 M/mm3 (4.20-5.60); REDCELL DISTRIBUTION WIDTH-CV 13.8 % (11.5-14.5)
[2020-07-11 07:56] LABS: HEMATOCRIT 31.8 % (42.0-52.0)
--- NOTE | 2020-07-11 10:00 | NUR ---
Assessment completed, alert/oriented, vital signs stable, reports pain to right ribs is improved and minimal/tolerable at this time, at rest patient has minimal dyskinetic movements of left upper extrm. as he became more awake and alert this morning the movements and stuttering speech have became more pronounced, no other neurological symptoms or deficits noted, heart RRR, lungs CTA/ no reps.difficuly, he ate breakfst and is scheduled for a CT scan this morning, denies other needs at this time
--- NOTE | 2020-07-11 11:56 | NUR ---
SW met with patient to conduct intake evaluation. Patient lives at home in [place] with Jaylene (P# [phone]). Patient states that his Jaylene has DPOA paperwork. SW requested that patient contact to have her bring/fax in DPOA paperwork. [facility] is [facility] and has PCP through [place]. Patient uses [facility] for pharmacy and denies problems affording medications. Patient uses walker and a CPAP obtained through [facility]. Patient denies needing assistance with ADLs. Patient reported that he plans to contact [facility] caregivers for in-home caregiving assistance. Patient denies questions or concerns. RN reported that patient has unusual psychomotor movements, but that they are only evident when patient is talking and moving. RN feels that this is more psychosomatic than anything neurological as it ceases when patient is at rest. RN reported that patient is stressed out regarding feelings of his third cheating on him. Social work will continue to follow as needs progress.
--- NOTE | 2020-07-11 19:48 | NUR ---
Sitting in chair, ambulating independently in room, minimul uncontrolled movement to L arm noted at this time, bedtime snack offered, no s/s of hypo/hyper glycemia, denies need for pain medications at this time.
--- NOTE | 2020-07-11 23:01 | NUR ---
Resting quietly, no c/o at this time. Call john w/i mary jane.
[2020-07-12 04:06] VITALS: BP 134/86; PULSE 57; TEMP 97.2
[2020-07-12 06:51] LABS: BASO # 0.1 (0.0-0.2); BASO % 1.1 % (0.0-2.0); EOS # 0.3 (0.0-0.7); EOS % 4.6 % (0-4.0); GRAN # 2.8 (1.4-6.5); GRAN % 52.7 % (42.2-75.2); LYMPH # 1.8 (1.2-3.4); LYMPH % 33.8 % (20.0-51.0); MEAN CELL VOLUME 86 fl (80.0-100.0); MEAN CORPUSCULAR HGB CONC 33 g/dl (33.0-37.0); MEAN PLATELET VOLUME 10.8 fl (7.4-10.4); MONO # 0.4 (0.1-0.6); MONO % 7.6 % (1.7-9.3); PLATELET COUNT 167 K/mm3 (130-400); RED BLOOD COUNT 3.44 M/mm3 (4.20-5.60); REDCELL DISTRIBUTION WIDTH-CV 13.8 % (11.5-14.5)
[2020-07-12 07:03] LABS: ALBUMIN 3.4 gm/dL (3.5-5.0); BILIRUBIN,TOTAL 0.4 mg/dL (0.0-1.0); CALCIUM 8.3 mg/dL (8.4-10.2); CREATININE, serum 3.22 (0.66-1.25); POTASSIUM 3.8 mmol/L (3.4-5.0); TOTAL PROTEIN 6.5 gm/dL (6.4-8.2)
[2020-07-12 07:22] VITALS: BP 158/84; PULSE 82; TEMP 97.4
[2020-07-12 07:38] LABS: HEMATOCRIT 29.7 % (42.0-52.0); HEMOGLOBIN 9.9 g/dl (13.5-18.0); MEAN CORPUSCULAR HEMOGLOBIN 29 pg (27.0-31.0)
--- NOTE | 2020-07-12 08:07 | NUR ---
Assessment completed, alert/oriented, vital signs stable, no new neurological changes noted this morning and no changes reported through the night, patient still has some occasional mild writhing movments of LUE, pupils equal and reactive, speech clear, patient is sitting up eating and has taken his morning meds without any difficulty, lungs CTA/ no resp.difficulty noted, reports right side/ ribs still sore but pain much improved an denies need for any interventiton or meds at this time, heart RRR/SR on tele , distal pulses are palpable, some edema note to BLE, despite IVF continued from yesterday his creatnine continues to trend up/ I will notifiy hospitalist of this, he denies other needs
--- NOTE | 2020-07-12 10:42 | NUR ---
Initial visit; Patient thanked Edge Bonder for looking in on him and keeping him in her prayers.
[2020-07-12 11:31] VITALS: BP 128/72; PULSE 79; TEMP 98.1
--- NOTE | 2020-07-12 13:21 | NUR ---
Adjunct Faculty Instructor collaborated with VARSHA Medley about ordering PT/OT for patient. SW will continue to follow.
[2020-07-12 16:39] VITALS: BP 140/59; PULSE 81; TEMP 98.4
--- NOTE | 2020-07-12 19:39 | NUR ---
Ambulating in hallway with steady gait, no c/o pain at this time, updated on plan of care,
[2020-07-12 21:00] VITALS: BP 137/79; PULSE 77; TEMP 98.2
[2020-07-12 22:50] LABS: RETIC # 0.07 M/mm3 (0.02-0.16); RETIC % 1.9 % (0.5-3.52)
[2020-07-12 22:54] LABS: IRON,SERUM 59 ug/dL (35-150)
[2020-07-12 23:04] LABS: TOTAL IRON BINDING CAPACITY 238 ug/dL (261-462)
[2020-07-13 00:47] VITALS: BP 150/71; PULSE 41; TEMP 98
[2020-07-13 01:24] LABS: CERULOPLASMIN 25 mg/dL (20-60)
[2020-07-13 05:18] VITALS: BP 122/68; PULSE 39; PULSE 83; TEMP 97.4
[2020-07-13 07:18] LABS: BASO # 0.1 (0.0-0.2); BASO % 0.8 % (0.0-2.0); EOS # 0.2 (0.0-0.7); EOS % 3.2 % (0-4.0); GRAN # 3.9 (1.4-6.5); GRAN % 54.4 % (42.2-75.2); HEMOGLOBIN 10.6 g/dl (13.5-18.0); LYMPH # 2.5 (1.2-3.4); LYMPH % 34.1 % (20.0-51.0); MEAN CELL VOLUME 87 fl (80.0-100.0); MEAN CORPUSCULAR HEMOGLOBIN 30 pg (27.0-31.0); MEAN CORPUSCULAR HGB CONC 34 g/dl (33.0-37.0); MEAN PLATELET VOLUME 10.5 fl (7.4-10.4); MONO # 0.5 (0.1-0.6); MONO % 7.4 % (1.7-9.3); PLATELET COUNT 193 K/mm3 (130-400); RED BLOOD COUNT 3.57 M/mm3 (4.20-5.60); REDCELL DISTRIBUTION WIDTH-CV 13.8 % (11.5-14.5)
[2020-07-13 07:38] LABS: ALBUMIN 3.9 gm/dL (3.5-5.0); BILIRUBIN,TOTAL 0.4 mg/dL (0.0-1.0); CALCIUM 8.9 mg/dL (8.4-10.2); CREATININE, serum 3.25 (0.66-1.25); TOTAL PROTEIN 7.2 gm/dL (6.4-8.2)
[2020-07-13 08:18] VITALS: BP 164/60; PULSE 80; TEMP 97.6
--- NOTE | 2020-07-13 08:36 | NUR ---
pt assessment completed and charted, medications administered per jul. Pt A&O, independent in room, on room air, breathing even and unlabored. Pt on room air, LS cta, HRRR, BS active X4. Pulses strong bilaterally. BLE mild/trace/1+ edema. Pt has Lt arm involuntary movement, appears mild at this time, per pt it is new. Pt cooperative w/ cares at this time. RWR INT IV flushes w/o issues.
[2020-07-13] MEDS ORDERED: SODIUM BICARBO650 MG PO (09:28)
[2020-07-13 11:26] VITALS: BP 154/76; PULSE 73; TEMP 98.2
--- NOTE | 2020-07-13 14:10 | NUR ---
Dry Kiln Feeder attended clinical rounds and patient is ready for discharge today. PT is recommending outpatient therapy. Patient is agreeable to this and would like an appointment at [facility] on . SW contacted [facility] on and made appointment for 07/21/20 at 1100. DEVONTE provided appointment to community engagement leader. DEVONTE then faxed referral and discharge orders to [facility] on . No additional needs at this time.
--- NOTE | 2020-07-13 15:33 | NUR ---
Pt discharge instructions discussed and reviewed w/ patient who verbalized understanding, all questions answered. No further needs expressed. IV dc'd w/ cath tip intact. pt escorted out via WC by [employer] student.
[2020-07-13 17:09] LABS: .COPPER,S 0.97 mcg/mL (())
[2020-07-14 21:49] LABS: LYME DISEASE ANTIBODIES Negative (Negative)
== END 2020-07-13 15:34 | disposition home or self-care (01) | DRG 57 ==
LOC: COL.ER 16:36 → MEDICAL 19:27
PROVIDERS: Internal Medicine Nephrology; Physician Assistant; Psychiatry & Neurology Neurology; Student in an Organized Health Care Education/Training Program; ADMIT Family Medicine
DX: G25.5 Other chorea (principal); E87.2 Acidosis; N17.9 Acute kidney failure, unspecified; F45.9 Somatoform disorder, unspecified; R07.81 Pleurodynia; R79.89 Other specified abnormal findings of blood chemistry; J43.9 Emphysema, unspecified; D63.1 Anemia in chronic kidney disease; N18.32 Chronic kidney disease, stage 3b; N40.0 Benign prostatic hyperplasia without lower urinary tract symptoms; R00.8 Other abnormalities of heart beat; F03.90 Unspecified dementia, unspecified severity, without behavioral disturbance, psychotic disturbance, mood disturbance, and anxiety; M26.69 Other specified disorders of temporomandibular joint; E11.22 Type 2 diabetes mellitus with diabetic chronic kidney disease; I25.2 Old myocardial infarction; I25.10 Atherosclerotic heart disease of native coronary artery without angina pectoris; Z95.5 Presence of coronary angioplasty implant and graft; Z79.4 Long term (current) use of insulin; Z79.82 Long term (current) use of aspirin; Z87.891 Personal history of nicotine dependence
CPT/HCPCS: 99223-AI; 99232-AI; 99239; A9284; J1200; J1644; J1815; J7030

== ENCOUNTER 2020-07-28 18:38 | Inpatient (IN) | payer OTHER ==
[~2020-07-28] VITALS: Ht 188 cm; Wt 127.3 kg
[2020-07-28 19:22] LABS: BASO # 0.1 (0.0-0.2); BASO % 0.9 % (0.0-2.0); EOS # 0.2 (0.0-0.7); EOS % 4.2 % (0-4.0); GRAN # 3.8 (1.4-6.5); GRAN % 65.2 % (42.2-75.2); LYMPH # 1.3 (1.2-3.4); LYMPH % 21.6 % (20.0-51.0); MEAN CELL VOLUME 87 fl (80.0-100.0); MEAN CORPUSCULAR HGB CONC 34 g/dl (33.0-37.0); MEAN PLATELET VOLUME 10.4 fl (7.4-10.4); MONO # 0.5 (0.1-0.6); MONO % 7.8 % (1.7-9.3); PLATELET COUNT 233 K/mm3 (130-400); REDCELL DISTRIBUTION WIDTH-CV 13.5 % (11.5-14.5)
[2020-07-28 19:25] LABS: HEMATOCRIT 28.7 % (42.0-52.0); HEMOGLOBIN 9.7 g/dl (13.5-18.0); MEAN CORPUSCULAR HEMOGLOBIN 29 pg (27.0-31.0)
[2020-07-28 19:28] LABS: INR 1.2 (0.8-3.0); PROTHROMBIN TIME 13.1 SECONDS (9.7-12.8)
[2020-07-28 19:30] LABS: ALANINE AMINOTRANSFERASE 14 U/L (4-49); ALBUMIN 3.6 gm/dL (3.5-5.0); ALKALINE PHOSPHATASE 74 U/L (50-136); ANION GAP 8 mmol/L (7-16); AST,SGOT 25 U/L (15-37); BILIRUBIN,TOTAL 0.5 mg/dL (0.0-1.0); BLOOD UREA NITROGEN 52 mg/dL (9-20); CALCIUM 9.1 mg/dL (8.4-10.2); CARBON DIOXIDE 22 mmol/L (22-30); CHLORIDE 106 mmol/L (98-107); CREATININE, serum 3.43 (0.66-1.25); GLUCOSE 338 mg/dL (74-106); LIPASE 61 U/L (23-300); POTASSIUM 4.4 mmol/L (3.4-5.0); SODIUM 137 mmol/L (137-145); TOTAL PROTEIN 6.8 gm/dL (6.4-8.2)
[2020-07-28 19:57] LABS: TROPONIN-I < 0.012 ng/mL (0.000-0.035)
[2020-07-28 20:05] LABS: ARTERIAL BLD GAS O2 SATURATION 95.5 % (92-100); ARTERIAL BLD GAS TCO2 CT 24.1; ARTERIAL BLOOD GAS BASE EXCESS -3.2 (-2-2); ARTERIAL BLOOD GAS HCO3 22.8 meq/L (22-26); ARTERIAL BLOOD GAS PCO2 44.6 mmHg (35-45); ARTERIAL BLOOD GAS PO2 84.2 mmHg (80-100); ARTERIAL BLOOD GAS pH 7.33 (7.35-7.45)
[2020-07-28 20:17] LABS: COLLECTION METHOD CLEAN CATCH
[2020-07-28 20:27] LABS: MUCOUS Present /lpf; PH 5 (5-8); SQUAMOUS EPITHELIAL 0-2 /hpf; URINE APPEARANCE Hazy; URINE BACTERIA Occasional /hpf; URINE BILIRUBIN Negative (NEGATIVE); URINE BLOOD 1+ (NEGATIVE); URINE COLOR Yellow; URINE GLUCOSE 3+ (NEGATIVE); URINE KETONE Negative (NEGATIVE); URINE LEUKOCYTE ESTERASE 1+ (NEGATIVE); URINE NITRATE Negative (NEGATIVE); URINE PROTEIN(semi-quant) 3+ (NEGATIVE); URINE RBC 0-2 /hpf; URINE UROBILINOGEN Negative (NEGATIVE)
[2020-07-28 21:55] VITALS: BP 178/81; PULSE 79; TEMP 97.5
--- NOTE | 2020-07-28 22:15 | NUR ---
PT TRANSFER FROM ER ON CART. MOVED W SLIDE BOARD, PT YELLING OUT AND MOANING IN PAIN. 02/27 W MOVEMENT. IV TO LT HAND SUNNING NS. WOO CATH DD YELLOW CLEAR URINE. ASSESSMENT AND MEDS REVIEWED PT SHORT W NURSE AND SAYING "I DONT KNOW" TO QUESTIONS. CALLING HOSPITALIST JOSE ANTONIO FOR ORDERS. PLAN OF CARE AND ASSESMENT DONE TO BEST OF ABILITY. DENIES N/V, CHEST PAIN, SOME SOA WITH DEEP BREATHING NOTED BY MADHURI.
[2020-07-29] VITALS (7 sets, daily range): BP systolic 107–149; BP diastolic 49–82; PULSE 60–80; TEMP 97.4–98.2
[2020-07-29] MEDS ORDERED: NORCO 325 MG-7.1 TAB PO (02:05)
[2020-07-29] MEDS ORDERED: XANAX 1MG1 MG PO (02:05)
--- NOTE | 2020-07-29 04:26 | NUR ---
PT STATES HE WEARS HOME CPAP BUT DID NOT BRING AND DID NOT LIKE HOSPITAL CPAP, SATS ARE 96% ON RA. WILL ASK ABOUT HOSPITAL CPAP AGAIN TONIGHT AND CONTINUE TO MONITOR.
--- NOTE | 2020-07-29 05:43 | NUR ---
PT HAS RESTED THROUGH THE NIGHT WO INCIDENT. NEEDS MET.
[2020-07-29 06:51] LABS: BASO # 0.1 (0.0-0.2); BASO % 0.9 % (0.0-2.0); EOS # 0.3 (0.0-0.7); EOS % 4.3 % (0-4.0); GRAN # 3.4 (1.4-6.5); GRAN % 58.5 % (42.2-75.2); HEMOGLOBIN 10.4 g/dl (13.5-18.0); LYMPH # 1.5 (1.2-3.4); LYMPH % 26.4 % (20.0-51.0); MEAN CELL VOLUME 91 fl (80.0-100.0); MEAN CORPUSCULAR HEMOGLOBIN 29 pg (27.0-31.0); MEAN CORPUSCULAR HGB CONC 32 g/dl (33.0-37.0); MEAN PLATELET VOLUME 10.4 fl (7.4-10.4); MONO # 0.6 (0.1-0.6); MONO % 9.6 % (1.7-9.3); PLATELET COUNT 219 K/mm3 (130-400); RED BLOOD COUNT 3.55 M/mm3 (4.20-5.60); REDCELL DISTRIBUTION WIDTH-CV 13.4 % (11.5-14.5)
[2020-07-29 07:06] LABS: HEMATOCRIT 32.2 % (42.0-52.0)
[2020-07-29 07:09] LABS: CALCIUM 9.3 mg/dL (8.4-10.2); CREATININE, serum 3.61 (0.66-1.25); POTASSIUM 4.1 mmol/L (3.4-5.0)
--- NOTE | 2020-07-29 09:24 | NUR ---
PT SITTING UP IN BED. PT IS VERY VOCAL AND GRUNTING ON MOVEMENT. AM MEDS ADN PRN PAIN MEDS GIVEN ORDERED. PT SEEMS FORGETFULL, CALLING NURSE THEN UNABLE TO VOCALIZE WHAT HE NEEDED. PT REPORTING RIB PAIN 12/28. WOO CATHETER TO DD WITH CLEAR YELLOW URINE IN BAG. PLAN ON DISCONTINUING CATHETER THIS AM.
--- NOTE | 2020-07-29 13:49 | NUR ---
DEVONTE met with the patient and his , Jaylene (ph#[phone]), to discuss discharge plan and re-admit. The patient was recently discharged on 07/13 and returned home with his and outpatient therapy. The patient and his report that they picked up his medications and that the patient took them as prescribed. Jaylene reports that the patient has not seen his PCP since his discharge. She states that his with his appointment with his PCP is on 08/05. Jaylene reports that the patient has fallen 3 times since his last admission. She states that she would be interested in some help at home. The patient lives in [place] with his . He reports independence with ADLs and has a cane, walker, and CPAP. The patient's receives primary care from the [facility]. Him and his could not recall his providers name. He receives his medications at [facility] and he reports no difficulties obtaining his meds. The patient does not have a DPOA-HC, but him and his were interested in completing one. The patient verbalized that he wanted to designate his . DEVONTE and RN, Fredrick, witnessed the patient's signature. The patient was provided with the original and some copies. DEVONTE placed a copy in the patient's chart. The patient and his report that the plan is to return home upon discharge. With the reoccuring falls, DEVONTE discussed rehab upon discharge. The patient and his report he will not be going to rehab upon discharge and his states that she can take care of him, with the help of some home health. DEVONTE informed the patient and his that home health only comes out a few times a week, just an hour at a time. The patient's verbalized understanding and states that she is okay with that. The patient is listed as [employer]. The patient states that he also has Medicare [employer]. DEVONTE discussed billing his [employer] vs Medicare [employer] for the home health. The patient and his would like to bill his Medicare for the home health and they were open to any home health agency. DEVONTE contacted and faxed a referral to Rachel at [facility]. Awaiting screen. DVEONTE contacted the [facility] Team. The law firm receptionist reports that his PCP is Hector Ba. DEVONTE informed the law firm receptionist that the patient and his are interested in more in home services. She reports to fax his records to [phone] and they can assist with getting him more services. DEVONTE to continue to follow.
--- NOTE | 2020-07-29 16:45 | NUR ---
Rachel, at [facility], reports that they are able to take the patient. The hospitalist notified DEVONTE that he would recommend rehab for the patient and the patient and are agreeable to rehab now. An IPR consult was ordered. DEVONTE followed up with the patient's . She would prefer IPR, but was agreeable for DEVONTE to send referrals to the local facilities. She states that she will be here tomorrow around 1000 to review d/c plan. DEVONTE contacted and faxed a referral to [facility]. Awaiting screens.
--- NOTE | 2020-07-29 17:48 | NUR ---
WOO CATHETER DISCONTINUED PER ORDERS THIS SHIFT. TIP INTACT PT TOLERATED WELL.
[2020-07-30 03:37] VITALS: BP 142/67; PULSE 81; TEMP 97.7
--- NOTE | 2020-07-30 04:55 | NUR ---
Patient had an uneventful night. He did complain of 8/10 pain a few times. He recieved pain medicine at 9pm and again at 3am. He is resting now. He has IV fluids at 100. He got up to the bathroom one time. He doesn't have any complaints.
[2020-07-30 07:11] LABS: BASO % 0.8 % (0.0-2.0); EOS # 0.2 (0.0-0.7); EOS % 4.1 % (0-4.0); GRAN # 3.4 (1.4-6.5); LYMPH # 1.2 (1.2-3.4); MEAN CELL VOLUME 89 fl (80.0-100.0); MEAN CORPUSCULAR HGB CONC 33 g/dl (33.0-37.0); MEAN PLATELET VOLUME 10.2 fl (7.4-10.4); MONO # 0.4 (0.1-0.6); MONO % 7.7 % (1.7-9.3); PLATELET COUNT 202 K/mm3 (130-400); RED BLOOD COUNT 3.14 M/mm3 (4.20-5.60); REDCELL DISTRIBUTION WIDTH-CV 13.5 % (11.5-14.5)
[2020-07-30 07:12] VITALS: BP 153/82; PULSE 78; TEMP 98
[2020-07-30 07:15] LABS: HEMOGLOBIN 9.2 g/dl (13.5-18.0); MEAN CORPUSCULAR HEMOGLOBIN 29 pg (27.0-31.0)
[2020-07-30 07:19] LABS: CALCIUM 8.5 mg/dL (8.4-10.2); CREATININE, serum 3.37 (0.66-1.25); MAGNESIUM 1.7 mg/dL (1.6-2.3); POTASSIUM 4.1 mmol/L (3.4-5.0)
--- NOTE | 2020-07-30 08:13 | NUR ---
Pt assessment complete. Pt is sitting up in the chair eating breakfast, he is alert but oriented to self only. Breathing is even and unlabored on RA. Pt denies SOB. Intermittent pain to R side from fall, worse with certain movements. Requesting a pain pill when available. Ate breakfast without issues, no N/V. IVF infusing, fall precautions in place.
[2020-07-30 12:20] VITALS: BP 142/82; PULSE 80; TEMP 98.3
[2020-07-30] MEDS ORDERED: NORCO 325 MG-51 TAB PO (14:38)
[2020-07-30] MEDS ORDERED: OMNICEF 300MG300 MG PO (14:41)
--- NOTE | 2020-07-30 14:45 | NUR ---
Pt and his requesting to leave despite efforts Social work is attempting to accommodate patient. They are reporting they need to get to the bank before it closes so they can pay bills. Dr. Mendes notified and spoke with patient and . Pt pulled out own IV. AMA paperwork signed. Pt wheeled out of facility.
--- NOTE | 2020-07-30 16:26 | NUR ---
Kay, IPR Director, reports that they are unable to take the patient; due to no beds. DEVONTE notified [facility]. [facility] report that if the patient decides to pay for SNF using his VA, then the hospital has to submit for auth. Otherwise, they could try and get auth from the patient's [employer]. The hospitalist then notified SW that the patient and his have concerns about paying their bills. His is not on the patient's banking account to be able to withdrawal money to pay for their bills, while he is in the hospital or rehab. DEVONTE met with the patient and his , Jaylene. Yas expressed her concerns. She states that they bank through [employer]. DEVONTE contacted Yaquelin at [facility]. Yaquelin reorts that she will check with their back offices to see if there are any exceptions or offers that they could offer the patient to be able for them to withdrawal money, without the patient being there. DEVONTE updated the patient and his . Jaylene then appeared upset and stated that the bank will not be able to make any exceptions for them. She then came out of the patient's room saying that the patient is ready to go and to get his discharge paperwork. DEVONTE and the patient's RN met with the patient and his . The patient was opening to waiting thirty minutes to see if [employer] would return DEVONTE's phone call with and update. The patient's then exited the patient's room, stating that the patient is ready to go. [facility]. The outpatient receptionist reports that Yaquelin is actively working on the case, but does not have a solution yet. The patient decided to leave AMA. The patient and his were still agreeable to home health services from [facility]. The patient left AMA today, 07/30, and returned home with his and home health services for halfway/PT/OT from [facility]. DEVONTE notified and faxed d/c orders to Rachel at [facility]. Rachel reports that they can still the patient. Yaquelin at [facility] contacted DEVONTE and expressed concerns. DEVONTE made an APS report. Intake ID#[id number].
== END 2020-07-30 14:55 | disposition left against medical advice (07) | DRG 205 ==
LOC: COL.ER 18:38 → MEDICAL 20:17
PROVIDERS: Emergency Medicine; Internal Medicine; Nurse Practitioner Family; ADMIT Student in an Organized Health Care Education/Training Program
DX: S22.31XA Fracture of one rib, right side, initial encounter for closed fracture (principal); J96.01 Acute respiratory failure with hypoxia; N39.0 Urinary tract infection, site not specified; N18.4 Chronic kidney disease, stage 4 (severe); N17.9 Acute kidney failure, unspecified; E66.2 Morbid (severe) obesity with alveolar hypoventilation; J43.9 Emphysema, unspecified; I25.10 Atherosclerotic heart disease of native coronary artery without angina pectoris; N40.0 Benign prostatic hyperplasia without lower urinary tract symptoms; E11.22 Type 2 diabetes mellitus with diabetic chronic kidney disease; I12.9 Hypertensive chronic kidney disease with stage 1 through stage 4 chronic kidney disease, or unspecified chronic kidney disease; D63.1 Anemia in chronic kidney disease; E11.21 Type 2 diabetes mellitus with diabetic nephropathy; F03.90 Unspecified dementia, unspecified severity, without behavioral disturbance, psychotic disturbance, mood disturbance, and anxiety; S02.611D Fracture of condylar process of right mandible, subsequent encounter for fracture with routine healing; I25.2 Old myocardial infarction; Z95.5 Presence of coronary angioplasty implant and graft; Z79.4 Long term (current) use of insulin; Z68.36 Body mass index [BMI] 36.0-36.9, adult; Z79.82 Long term (current) use of aspirin; Z87.891 Personal history of nicotine dependence; W19.XXXA Unspecified fall, initial encounter
CPT/HCPCS: 99223-AI; 99233-AI; 99239; A4314; J0696; J1644; J1815; J2270; J2405; J7030

== ENCOUNTER 2020-09-06 08:02 | Emergency (ER) | payer MEDICARE, OTHER ==
[~2020-09-06] VITALS: Ht 190.5 cm; Wt 104.5 kg
[~2020-09-06 08:02] MED LIST changes: +OMNICEF 300MG300 MG PO; +XANAX 1MG1 MG PO
[2020-09-06 08:41] LABS: BASO # 0.1 (0.0-0.2); BASO % 0.8 % (0.0-2.0); EOS # 0.3 (0.0-0.7); EOS % 3.5 % (0-4.0); GRAN # 5.1 (1.4-6.5); GRAN % 65.4 % (42.2-75.2); HEMOGLOBIN 10.3 g/dl (13.5-18.0); LYMPH # 1.7 (1.2-3.4); LYMPH % 21.4 % (20.0-51.0); MEAN CELL VOLUME 90 fl (80.0-100.0); MEAN CORPUSCULAR HEMOGLOBIN 30 pg (27.0-31.0); MEAN CORPUSCULAR HGB CONC 33 g/dl (33.0-37.0); MEAN PLATELET VOLUME 10.5 fl (7.4-10.4); MONO # 0.7 (0.1-0.6); MONO % 8.6 % (1.7-9.3); PLATELET COUNT 212 K/mm3 (130-400); RED BLOOD COUNT 3.48 M/mm3 (4.20-5.60)
[2020-09-06 08:44] LABS: HEMATOCRIT 31.3 % (42.0-52.0)
[2020-09-06 08:53] LABS: ALBUMIN 4.3 gm/dL (3.5-5.0); BILIRUBIN,TOTAL 0.7 mg/dL (0.0-1.0); CALCIUM 9.8 mg/dL (8.4-10.2); CREATININE, serum 3.31 (0.66-1.25); POTASSIUM 4.7 mmol/L (3.4-5.0); TOTAL PROTEIN 8.3 gm/dL (6.4-8.2)
[2020-09-06 09:31] LABS: TROPONIN-I 0.071 ng/mL (0.000-0.035)
[2020-09-06 09:48] LABS: COLLECTION METHOD CATHETER
[2020-09-06 10:10] LABS: MUCOUS Present /lpf; SQUAMOUS EPITHELIAL 0-2 /hpf; URINE BACTERIA None Seen /hpf; URINE RBC None Seen /hpf
[2020-09-06 10:11] LABS: PH 6 (5-8); URINE APPEARANCE Clear; URINE BILIRUBIN Negative (NEGATIVE); URINE BLOOD Negative (NEGATIVE); URINE COLOR Yellow; URINE GLUCOSE 1+ (NEGATIVE); URINE KETONE Negative (NEGATIVE); URINE LEUKOCYTE ESTERASE Negative (NEGATIVE); URINE NITRATE Negative (NEGATIVE); URINE PROTEIN(semi-quant) 3+ (NEGATIVE); URINE UROBILINOGEN Negative (NEGATIVE)
--- NOTE | 2020-09-06 16:27 | NUR ---
Senior Software Engineer Analytics consulted for the patient due to falls at home. The patient discharged last month with [facility]. DEVONTE contacted [facility] and they did confirm they have the patient since last month. DEVONTE attempted to contact the patient's , Jaylene and could not connect with her. DEVONTE sent RCPD out to the home. DEVONTE eventually contacted Jaylene. Jaylene reports the patient fell six times last night. Jaylene feels the patient is not safe at home at this time. She confirmed that the patient has [facility] and they come out 2x a week. Jaylene states she will visit the patient tomorrow 09/07. DEVONTE discussed the possiblity of the patient returning home this day with continued home health. Jaylene states she would not have a choice if they discharged the patient but she is concerned because if the patient falls she cannot help him up. Jaylene states she has a broken arm and has an appointment on Sunday, 09/07 at 1300 to find out if she has surgery. DEVONTE discussed private paying for SNF. They cannot affort it. DEVONTE discussed if any children could assist in supporting them. Jaylene states the children live in [place] and cannot afford to visit due to lack of funds and transportation. DEVONTE discussed sending referrals. Jaylene prefers to keep the patient in [place] [employer] and [facility] is the first choice. She was agreeable to sending referrals to [facility] and [facility]. Referrals sent. DEVONTE sent off for authorization to [facility]. [place] from [facility] has not accepted yet but they will not have bed for 2-3 days. SW to continue sending updates. Leti from [facility] reports the team has reviewed the information and they would like to have the patient's Troponin levels and PT notes on Thursday 09/07 morning. They have not yet accepted but would like to review notes first. Dai still reviewing. During the July admission DEVONTE Hdz made an APS report. DEVONTE contacted Marleni with APS and she reports the case has been closed. This DEVONTE made APS report. Intake # [id number]
[2020-09-06 16:49] VITALS: BP 171/98; PULSE 80; TEMP 97.8
== END 2020-09-06 16:51 | disposition home or self-care (01) ==
LOC: COL.ER 08:02
PROVIDERS: Emergency Medicine
DX: S52.502A Unspecified fracture of the lower end of left radius, initial encounter for closed fracture (principal); S00.01XA Abrasion of scalp, initial encounter; E11.22 Type 2 diabetes mellitus with diabetic chronic kidney disease; I12.9 Hypertensive chronic kidney disease with stage 1 through stage 4 chronic kidney disease, or unspecified chronic kidney disease; N18.4 Chronic kidney disease, stage 4 (severe); I25.10 Atherosclerotic heart disease of native coronary artery without angina pectoris; Z23 Encounter for immunization; Z79.4 Long term (current) use of insulin; Z79.82 Long term (current) use of aspirin; Z79.899 Other long term (current) drug therapy; Z95.5 Presence of coronary angioplasty implant and graft; W19.XXXA Unspecified fall, initial encounter; Y92.009 Unspecified place in unspecified non-institutional (private) residence as the place of occurrence of the external cause
CPT/HCPCS: J1885

== ENCOUNTER 2020-09-08 11:04 | Emergency (ER) | payer MEDICARE ==
[2020-09-08 11:05] VITALS: TEMP 97.9
[2020-09-08 11:24] LABS: BASO # 0.1 (0.0-0.2); BASO % 0.8 % (0.0-2.0); EOS # 0.4 (0.0-0.7); EOS % 4.8 % (0-4.0); GRAN # 5.1 (1.4-6.5); GRAN % 61.6 % (42.2-75.2); HEMOGLOBIN 10.9 g/dl (13.5-18.0); LYMPH % 24.2 % (20.0-51.0); MEAN CELL VOLUME 89 fl (80.0-100.0); MEAN CORPUSCULAR HEMOGLOBIN 29 pg (27.0-31.0); MEAN CORPUSCULAR HGB CONC 33 g/dl (33.0-37.0); MEAN PLATELET VOLUME 10.3 fl (7.4-10.4); MONO # 0.7 (0.1-0.6); MONO % 8.2 % (1.7-9.3); PLATELET COUNT 229 K/mm3 (130-400); RED BLOOD COUNT 3.75 M/mm3 (4.20-5.60); REDCELL DISTRIBUTION WIDTH-CV 13.4 % (11.5-14.5)
[2020-09-08 11:26] LABS: HEMATOCRIT 33.5 % (42.0-52.0)
[2020-09-08 11:31] LABS: INR 1.1 (0.8-3.0); PROTHROMBIN TIME 12.7 SECONDS (9.7-12.8)
[2020-09-08 11:36] LABS: ALBUMIN 4.2 gm/dL (3.5-5.0); BILIRUBIN,TOTAL 0.5 mg/dL (0.0-1.0); CALCIUM 9.4 mg/dL (8.4-10.2); CREATININE, serum 3.3 (0.66-1.25); POTASSIUM 4.1 mmol/L (3.4-5.0); TOTAL PROTEIN 8.3 gm/dL (6.4-8.2)
--- NOTE | 2020-09-08 13:11 | NUR ---
Film Coater consulted for the patient to get a hold of the patient's , Jaylene to provide transportation home. DEVONTE contacted Jaylene # . Jaylene reports she will picker/puller the patient. DEVONTE contacted APS emergency worker Radha regarding this ED visit for the patient. DEVONTE collaborated the above information with the patient's nurse.
[2020-09-08 13:35] VITALS: BP 190/83; PULSE 69
== END 2020-09-08 13:40 | disposition home or self-care, planned readmission (81) ==
LOC: COL.ER 11:04
PROVIDERS: Physician Assistant
DX: S00.91XA Abrasion of unspecified part of head, initial encounter (principal); S80.211A Abrasion, right knee, initial encounter; I25.10 Atherosclerotic heart disease of native coronary artery without angina pectoris; E11.22 Type 2 diabetes mellitus with diabetic chronic kidney disease; I12.9 Hypertensive chronic kidney disease with stage 1 through stage 4 chronic kidney disease, or unspecified chronic kidney disease; J44.9 Chronic obstructive pulmonary disease, unspecified; N18.4 Chronic kidney disease, stage 4 (severe); N40.0 Benign prostatic hyperplasia without lower urinary tract symptoms; Z95.9 Presence of cardiac and vascular implant and graft, unspecified; Z79.4 Long term (current) use of insulin; Z79.82 Long term (current) use of aspirin; W19.XXXA Unspecified fall, initial encounter

== ENCOUNTER 2021-02-18 22:25 | Emergency (ER) | payer MEDICARE ==
[~2021-02-18] VITALS: Ht 182.9 cm; Wt 131.8 kg
[2021-02-18 22:26] VITALS: TEMP 98
[2021-02-18 22:39] LABS: BASO # 0.1 (0.0-0.2); BASO % 0.6 % (0.0-2.0); EOS # 0.3 (0.0-0.7); EOS % 2.6 % (0-4.0); GRAN % 70.4 % (42.2-75.2); LYMPH # 1.7 (1.2-3.4); LYMPH % 17.4 % (20.0-51.0); MEAN CELL VOLUME 91 fl (80.0-100.0); MEAN CORPUSCULAR HEMOGLOBIN 30 pg (27.0-31.0); MEAN CORPUSCULAR HGB CONC 33 g/dl (33.0-37.0); MEAN PLATELET VOLUME 10.2 fl (7.4-10.4); MONO # 0.9 (0.1-0.6); MONO % 8.6 % (1.7-9.3); PLATELET COUNT 228 K/mm3 (130-400); RED BLOOD COUNT 3.32 M/mm3 (4.20-5.60); REDCELL DISTRIBUTION WIDTH-CV 13.2 % (11.5-14.5)
[2021-02-18 22:43] LABS: HEMATOCRIT 30.1 % (42.0-52.0)
[2021-02-18 22:52] LABS: INR 1.2 (0.8-3.0); PROTHROMBIN TIME 13.3 SECONDS (9.7-12.8)
[2021-02-18 22:55] LABS: PARTIAL THROMBOPLASTIN TIME 32.8 SECONDS (26.0-37.0)
[2021-02-18 23:04] LABS: BILIRUBIN,TOTAL 0.6 mg/dL (0.2-1.2); CALCIUM 9.8 mg/dL (8.4-10.2); CREATININE, serum 3.86 mg/dL (0.72-1.25); POTASSIUM 4.2 mmol/L (3.5-4.5); TOTAL PROTEIN 7.7 gm/dL (6.2-8.1)
[2021-02-18 23:10] LABS: TROPONIN-I 0.016 ng/mL (0.00-0.033)
[2021-02-19 02:16] VITALS: BP 150/84; PULSE 79
== END 2021-02-19 02:16 | disposition home or self-care (01) ==
LOC: COL.ER 22:25
PROVIDERS: Student in an Organized Health Care Education/Training Program
DX: R07.9 Chest pain, unspecified (principal); R79.0 Abnormal level of blood mineral; E11.22 Type 2 diabetes mellitus with diabetic chronic kidney disease; I12.9 Hypertensive chronic kidney disease with stage 1 through stage 4 chronic kidney disease, or unspecified chronic kidney disease; N18.4 Chronic kidney disease, stage 4 (severe); I25.10 Atherosclerotic heart disease of native coronary artery without angina pectoris; J44.9 Chronic obstructive pulmonary disease, unspecified; N40.0 Benign prostatic hyperplasia without lower urinary tract symptoms; F03.90 Unspecified dementia, unspecified severity, without behavioral disturbance, psychotic disturbance, mood disturbance, and anxiety; Z79.4 Long term (current) use of insulin; Z79.82 Long term (current) use of aspirin; Z79.899 Other long term (current) drug therapy

== ENCOUNTER 2021-05-11 12:10 | Emergency (ER) | payer MEDICARE ==
[~2021-05-11] VITALS: Ht 188 cm; Wt 118.2 kg
[2021-05-11 12:21] VITALS: TEMP 97.1
[2021-05-11 12:47] LABS: BASO # 0.1 K/mm3 (0.0-0.2); EOS # 0.2 K/mm3 (0.0-0.7); EOS % 3.8 % (0.0-4.0); GRAN # 3.8 K/mm3 (1.4-6.5); GRAN % 63.6 % (42.2-75.2); HEMOGLOBIN 10.2 g/dl (13.5-18.0); LYMPH # 1.4 K/mm3 (1.2-3.4); LYMPH % 23.3 % (20.0-51.0); MEAN CELL VOLUME 89 fl (80.0-100.0); MEAN CORPUSCULAR HEMOGLOBIN 30 pg (27-31); MEAN CORPUSCULAR HGB CONC 34 g/dl (33.0-37.0); MEAN PLATELET VOLUME 10.5 fl (7.4-10.4); MONO # 0.5 K/mm3 (0.1-0.6); PLATELET COUNT 201 K/mm3 (130-400); RED BLOOD COUNT 3.39 M/mm3 (4.20-5.60); REDCELL DISTRIBUTION WIDTH-CV 13.2 % (11.5-14.5)
[2021-05-11 12:50] LABS: ALANINE AMINOTRANSFERASE 16 U/L (0-55); ALBUMIN 3.8 gm/dL (3.4-4.8); ALKALINE PHOSPHATASE 62 U/L (40-150); ANION GAP 14 mmol/L (7-16); AST,SGOT 17 U/L (5-34); BILIRUBIN,TOTAL 0.4 mg/dL (0.2-1.2); BLOOD UREA NITROGEN 55 mg/dL (8-26); CALCIUM 8.8 mg/dL (8.4-10.2); CARBON DIOXIDE 15 mmol/L (23-31); CHLORIDE 111 mmol/L (98-107); CREATININE, serum 4.12 mg/dL (0.72-1.25); GLUCOSE 224 mg/dL (70-99); POTASSIUM 4.6 mmol/L (3.5-4.5); SODIUM 140 mmol/L (136-145); TOTAL PROTEIN 7.2 gm/dL (6.2-8.1)
[2021-05-11 12:51] LABS: COLLECTION METHOD CLEAN CATCH
[2021-05-11 12:58] LABS: TROPONIN-I < 0.010 ng/mL (0.00-0.033)
[2021-05-11 13:08] LABS: MUCOUS Present (NOT PRESENT); PH 5 (5-8); SQUAMOUS EPITHELIAL 0-2 /hpf (0-10); URINE APPEARANCE Clear (CLEAR/HAZY); URINE BACTERIA None Seen /hpf (NONE SEEN); URINE BILIRUBIN Negative (NEGATIVE); URINE BLOOD Negative (NEGATIVE); URINE COLOR Yellow (YELLOW); URINE GLUCOSE 2+ (NEGATIVE); URINE KETONE Negative (NEGATIVE); URINE LEUKOCYTE ESTERASE Negative (NEGATIVE); URINE NITRATE Negative (NEGATIVE); URINE PROTEIN(semi-quant) 2+ (NEGATIVE); URINE RBC 0-2 /hpf (0-2); URINE UROBILINOGEN Negative (NEGATIVE); URINE WBC 0-2 /hpf (0-2)
[2021-05-11] MEDS ORDERED: PREDNISONE50 MG PO (13:47)
[2021-05-11 15:00] VITALS: BP 145/61; PULSE 65
== END 2021-05-11 15:06 | disposition home or self-care (01) ==
LOC: COL.ER 12:10
PROVIDERS: Emergency Medicine
DX: J44.1 Chronic obstructive pulmonary disease with (acute) exacerbation (principal); I25.10 Atherosclerotic heart disease of native coronary artery without angina pectoris; I12.9 Hypertensive chronic kidney disease with stage 1 through stage 4 chronic kidney disease, or unspecified chronic kidney disease; E11.22 Type 2 diabetes mellitus with diabetic chronic kidney disease; N18.4 Chronic kidney disease, stage 4 (severe); N40.0 Benign prostatic hyperplasia without lower urinary tract symptoms; F03.90 Unspecified dementia, unspecified severity, without behavioral disturbance, psychotic disturbance, mood disturbance, and anxiety; Z79.4 Long term (current) use of insulin; Z79.899 Other long term (current) drug therapy; Z79.82 Long term (current) use of aspirin
CPT/HCPCS: J1940; J2930

== ENCOUNTER 2021-12-03 21:50 | Emergency (ER) | payer OTHER, MEDICARE ==
[~2021-12-03] VITALS: Ht 188 cm; Wt 90.9 kg
[~2021-12-03 21:50] MED LIST changes: +PREDNISONE50 MG PO
[2021-12-03 22:00] VITALS: TEMP 98
[2021-12-03 22:50] LABS: BASO # 0.1 K/mm3 (0.0-0.2); BASO % 0.7 % (0.0-2.0); EOS # 0.1 K/mm3 (0.0-0.7); EOS % 1.8 % (0.0-4.0); GRAN # 5.2 K/mm3 (1.4-6.5); GRAN % 70.6 % (42.2-75.2); HEMOGLOBIN 10.5 g/dl (13.5-18.0); LYMPH % 12.9 % (20.0-51.0); MEAN CELL VOLUME 91 fl (80.0-100.0); MEAN CORPUSCULAR HEMOGLOBIN 31 pg (27-31); MEAN CORPUSCULAR HGB CONC 34 g/dl (33.0-37.0); MEAN PLATELET VOLUME 10.4 fl (7.4-10.4); MONO % 13.7 % (1.7-9.3); PLATELET COUNT 197 K/mm3 (130-400); RED BLOOD COUNT 3.44 M/mm3 (4.20-5.60); REDCELL DISTRIBUTION WIDTH-CV 13.2 % (11.5-14.5)
[2021-12-03 22:54] LABS: HEMATOCRIT 31.2 % (42.0-52.0)
[2021-12-03 23:06] LABS: ALBUMIN 3.4 gm/dL (3.4-4.8); BILIRUBIN,TOTAL 0.3 mg/dL (0.2-1.2); CALCIUM 8.8 mg/dL (8.4-10.2); CREATININE, serum 4.02 mg/dL (0.72-1.25); POTASSIUM 4.6 mmol/L (3.5-4.5); TOTAL PROTEIN 6.8 gm/dL (6.2-8.1)
[2021-12-03 23:12] LABS: TROPONIN-I 0.019 ng/mL (0.00-0.033)
[2021-12-04] MEDS ORDERED: PRINIVIL10 MG PO (02:41)
[2021-12-04 02:55] VITALS: BP 163/115; PULSE 60
== END 2021-12-04 02:55 | disposition home or self-care (01) ==
LOC: COL.ER 21:50
PROVIDERS: Emergency Medicine
DX: U07.1 COVID-19 (principal); R79.1 Abnormal coagulation profile; Z87.891 Personal history of nicotine dependence; Z28.310 Unvaccinated for COVID-19
CPT/HCPCS: J7030; Q0222

== ENCOUNTER 2022-01-18 13:19 | Inpatient (IN) | payer OTHER, MEDICARE ==
[~2022-01-18] VITALS: Ht 188 cm; Wt 105.2 kg
[~2022-01-18 13:19] MED LIST changes: +PRINIVIL10 MG PO
[2022-01-18 14:40] LABS: BASO # 0.1 K/mm3 (0.0-0.2); BASO % 0.7 % (0.0-2.0); EOS # 0.4 K/mm3 (0.0-0.7); EOS % 3.9 % (0.0-4.0); GRAN # 7.6 K/mm3 (1.4-6.5); GRAN % 74.4 % (42.2-75.2); LYMPH # 1.5 K/mm3 (1.2-3.4); LYMPH % 14.7 % (20.0-51.0); MEAN CELL VOLUME 91 fl (80.0-100.0); MEAN CORPUSCULAR HGB CONC 32 g/dl (33.0-37.0); MEAN PLATELET VOLUME 10.2 fl (7.4-10.4); MONO # 0.6 K/mm3 (0.1-0.6); MONO % 5.9 % (1.7-9.3); PLATELET COUNT 189 K/mm3 (130-400); RED BLOOD COUNT 3.18 M/mm3 (4.20-5.60); REDCELL DISTRIBUTION WIDTH-CV 14.4 % (11.5-14.5)
[2022-01-18 14:42] LABS: HEMATOCRIT 28.8 % (42.0-52.0); HEMOGLOBIN 9.3 g/dl (13.5-18.0); MEAN CORPUSCULAR HEMOGLOBIN 29 pg (27-31)
[2022-01-18 14:51] LABS: INR 1.1 (0.8-3.0); PROTHROMBIN TIME 12.5 SECONDS (9.7-12.8)
[2022-01-18 14:58] LABS: ALANINE AMINOTRANSFERASE 9 U/L (0-55); ALBUMIN 3.3 gm/dL (3.4-4.8); ALKALINE PHOSPHATASE 48 U/L (40-150); ANION GAP 11 mmol/L (7-16); AST,SGOT 14 U/L (5-34); BILIRUBIN,TOTAL 0.3 mg/dL (0.2-1.2); BLOOD UREA NITROGEN 49 mg/dL (8-26); CALCIUM 8.9 mg/dL (8.4-10.2); CARBON DIOXIDE 18 mmol/L (23-31); CHLORIDE 111 mmol/L (98-107); CREATININE, serum 4.78 mg/dL (0.72-1.25); GLUCOSE 146 mg/dL (70-99); POTASSIUM 4.6 mmol/L (3.5-4.5); SODIUM 140 mmol/L (136-145); TOTAL PROTEIN 6.8 gm/dL (6.2-8.1)
[2022-01-18 15:02] LABS: ALCOHOL(ethanol),MEDICAL < 10 mg/dL (0-10)
--- NOTE | 2022-01-18 18:04 | NUR ---
1800 attempted to take pt's meal per Dr. Aguilar's verbal order of NPO. Pt stated "I do not care what anyone has to say. I am eating this food. I have not ate anything all day." Pt was educated on risks of eating without speech evaluation. Dr. Aguilar notified of pt refusal.
--- NOTE | 2022-01-18 18:36 | NUR ---
PT ADMITTED TO UNIT. ADMISSION INTAKE AND ASSESSMENT COMPLETED. MED REC UPDATED. PT ORIENTED TO ROOM, AT BEDSIDE. CALL LIGHT WITHIN REACH, BED ALARMS IN PLACE. WILL PASS ALONG REPORT TO ONCOMING RN.
[2022-01-18 20:23] VITALS: BP 151/68; PULSE 72; TEMP 98.6
--- NOTE | 2022-01-18 21:18 | NUR ---
Pt did not bring home cpap and does not know cpap settings. No auto titrate cpap machines in the respiratory department. Will monitor O2 throughout the night.
[2022-01-19 00:40] VITALS: BP 153/80; PULSE 72; TEMP 98.4
[2022-01-19 04:12] VITALS: BP 146/80; PULSE 69; TEMP 97.7
--- NOTE | 2022-01-19 04:34 | NUR ---
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 PT RESTING IN BED WATCHING TV. PT DENIED GENERAL PAIN, CHEST PAIN, PALPITATIONS, SOB, N,V,D OR DIZZINESS. PT CONTINUES WITH SOME FACIAL DROOPING AND SLURRED SPEECH. PT GIVEN PO MEDS WITH THICKEN LIQUIDS. PT TOLERATED WELL. PT NPO WITH THE EXCEPTION OF PO MEDS. PT'S STROKE ASSESSMENT REMAINS STABLE. PT EXPRESSED NO ADDITIONAL NEEDS AT THIS TIME. CALL LIGHT WITHIN REACH.
[2022-01-19 06:24] LABS: BASO # 0.1 K/mm3 (0.0-0.2); BASO % 0.8 % (0.0-2.0); EOS # 0.5 K/mm3 (0.0-0.7); EOS % 6.1 % (0.0-4.0); GRAN # 4.6 K/mm3 (1.4-6.5); LYMPH # 2.3 K/mm3 (1.2-3.4); LYMPH % 28.4 % (20.0-51.0); MEAN CELL VOLUME 93 fl (80.0-100.0); MEAN CORPUSCULAR HGB CONC 32 g/dl (33.0-37.0); MEAN PLATELET VOLUME 10.6 fl (7.4-10.4); MONO # 0.5 K/mm3 (0.1-0.6); MONO % 6.4 % (1.7-9.3); PLATELET COUNT 186 K/mm3 (130-400); RED BLOOD COUNT 3.07 M/mm3 (4.20-5.60)
[2022-01-19 06:30] LABS: HEMATOCRIT 28.5 % (42.0-52.0); HEMOGLOBIN 9.1 g/dl (13.5-18.0); MEAN CORPUSCULAR HEMOGLOBIN 30 pg (27-31)
[2022-01-19 06:50] LABS: CALCIUM 8.7 mg/dL (8.4-10.2); CHOLESTEROL RISK RATIO 7.4; CREATININE, serum 4.7 mg/dL (0.72-1.25); MAGNESIUM 1.9 mg/dL (1.6-2.6); PHOSPHOROUS 4.5 mg/dL (2.3-4.7); POTASSIUM 4.6 mmol/L (3.5-4.5)
[2022-01-19 07:49] VITALS: BP 145/72; PULSE 70; TEMP 97.9
--- NOTE | 2022-01-19 11:59 | NUR ---
Pin Sticker met with patient and patient's , Jaylene to discuss discharge planning. [facility] lives in [place] [facility] Patient has a cane and walker at home and reports he is normally independent with ADLS. Patient reported that his , Jaylene is his DPOA-HC. SW discussed discharge planning and Jaylene stated they would definately need help. They have used [facility] in the past. SW discussed an IPR screen and patient is agreeable. SW contacted Kay, IPR Director and gave referral.
[2022-01-19 12:00] VITALS: BP 149/93; PULSE 68; TEMP 97.7
[2022-01-19 20:36] LABS: COLLECTION METHOD IN
[2022-01-19 20:41] LABS: URINE APPEARANCE Clear (CLEAR/HAZY); URINE COLOR Yellow (YELLOW); URINE PROTEIN(semi-quant) 3+ (NEGATIVE)
[2022-01-19 20:42] LABS: URINE BLOOD TRACE-INTACT (NEGATIVE); URINE GLUCOSE TRACE (NEGATIVE); URINE KETONE Negative (NEGATIVE); URINE NITRATE Negative (NEGATIVE); URINE UROBILINOGEN 0.2 E.U/dL (0.2-1.0)
[2022-01-19 20:57] LABS: MUCOUS Present (NOT PRESENT); SQUAMOUS EPITHELIAL None Seen /hpf (0-10); URINE BACTERIA None Seen /hpf (NONE SEEN); URINE RBC 0-2 /hpf (0-2)
[2022-01-20] VITALS (7 sets, daily range): BP systolic 121–164; BP diastolic 56–81; PULSE 51–68; TEMP 97.5–98.1
[2022-01-20 07:17] LABS: BASO # 0.1 K/mm3 (0.0-0.2); BASO % 0.9 % (0.0-2.0); EOS # 0.5 K/mm3 (0.0-0.7); EOS % 5.9 % (0.0-4.0); GRAN # 4.7 K/mm3 (1.4-6.5); GRAN % 60.5 % (42.2-75.2); LYMPH % 25.4 % (20.0-51.0); MEAN CELL VOLUME 89 fl (80.0-100.0); MEAN CORPUSCULAR HGB CONC 33 g/dl (33.0-37.0); MEAN PLATELET VOLUME 10.6 fl (7.4-10.4); MONO # 0.5 K/mm3 (0.1-0.6); PLATELET COUNT 189 K/mm3 (130-400); RED BLOOD COUNT 3.03 M/mm3 (4.20-5.60); REDCELL DISTRIBUTION WIDTH-CV 13.7 % (11.5-14.5)
[2022-01-20 07:21] LABS: HEMATOCRIT 27.1 % (42.0-52.0); MEAN CORPUSCULAR HEMOGLOBIN 30 pg (27-31)
[2022-01-20 07:39] LABS: CALCIUM 8.7 mg/dL (8.4-10.2); CREATININE, serum 4.45 mg/dL (0.72-1.25); MAGNESIUM 1.9 mg/dL (1.6-2.6); PHOSPHOROUS 4.2 mg/dL (2.3-4.7); POTASSIUM 4.5 mmol/L (3.5-4.5)
--- NOTE | 2022-01-20 09:23 | NUR ---
Pt doing well this morning. He has eaten all of his breakfast and states he is still hungry, ordered more for him per request. Pt gets in to the bathroom with standby assist. Speech is a little difficulty to understand, but when pt slow his speech down, it is easier to understand. No pain complaints. Pt is hoping to get to go home today. Calvin with PT in working with pt and then OT was going to assist with a shower
--- NOTE | 2022-01-20 09:46 | NUR ---
Initial visit; Patient thanked Department Head for looking in on him and offering God's blessings anf will keep him in her prayers.
--- NOTE | 2022-01-20 16:25 | NUR ---
Kay, [facility] Director advised they have submitted to patient's insurance.
--- NOTE | 2022-01-20 18:19 | NUR ---
Pt has been ordering a 2nd tray and stating how hungry he is. Tonight I overheard him on the phone complaining that he is being starved. He was very upset because he is not getting fed. I reminded him that I have been ordering a 2nd tray for him throughout today and that I can order him another dinner tray. A 2nd tray was called in. Pt sitting on side of bed, bed alarm on
[2022-01-21 03:51] VITALS: BP 158/69; PULSE 65
--- NOTE | 2022-01-21 04:45 | NUR ---
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 PT RESTING IN BED DOZING OFF WHILE WATCHING TV. PT DENIED GENERAL PAIN, CHEST PAIN, PALPITATIONS, SOB, N,V,D OR DIZZINESS. PT'S STROKE ASSESSMENTS ARE STABLE THIS SHIFT. PT EXPRESSED NO ADDITIONAL NEEDS AT THIS TIME. CALL LIGHT WITHIN REACH.
[2022-01-21 06:52] LABS: BASO # 0.1 K/mm3 (0.0-0.2); EOS # 0.5 K/mm3 (0.0-0.7); EOS % 6.3 % (0.0-4.0); GRAN # 4.5 K/mm3 (1.4-6.5); GRAN % 57.9 % (42.2-75.2); LYMPH % 26.4 % (20.0-51.0); MEAN CELL VOLUME 89 fl (80.0-100.0); MEAN CORPUSCULAR HGB CONC 33 g/dl (33.0-37.0); MEAN PLATELET VOLUME 10.8 fl (7.4-10.4); MONO # 0.6 K/mm3 (0.1-0.6); MONO % 8.1 % (1.7-9.3); PLATELET COUNT 189 K/mm3 (130-400); RED BLOOD COUNT 3.05 M/mm3 (4.20-5.60); REDCELL DISTRIBUTION WIDTH-CV 13.8 % (11.5-14.5)
[2022-01-21 07:24] LABS: CALCIUM 8.6 mg/dL (8.4-10.2); CREATININE, serum 4.14 mg/dL (0.72-1.25); MAGNESIUM 1.9 mg/dL (1.6-2.6); POTASSIUM 4.6 mmol/L (3.5-4.5)
[2022-01-21 07:25] LABS: HEMATOCRIT 27.1 % (42.0-52.0); HEMOGLOBIN 8.9 g/dl (13.5-18.0); MEAN CORPUSCULAR HEMOGLOBIN 29 pg (27-31)
[2022-01-21 07:50] VITALS: BP 150/71; PULSE 78; TEMP 97.5
--- NOTE | 2022-01-21 08:00 | NUR ---
Assessment complete. A&Ox4. Denies pain/nausea/shortness of breath. VS stable. Bilat retread operator equal. Noted to have slurred speechand right sided facial droop. TELE reports SR. Currently on room air. Right AC INT flushes well with no s/f of infiltration. Plan of care discussed for this shift to include meds/calling for questions/concerns. Verbalizes understanding. Call light in reach. Will monitor.
[2022-01-21 12:00] VITALS: BP 142/67; PULSE 67; TEMP 97.6
[2022-01-21 16:23] VITALS: BP 170/75; PULSE 67; TEMP 98
--- NOTE | 2022-01-21 18:00 | NUR ---
Patient had an uneventful day. Denied pain/nausea/shortness of breath. Blood pressure elevated but not within treatable parameters. visited most of day. Was up and ambulated. Denies current needs. Call light in reach. Will monitor.
[2022-01-21 20:22] VITALS: BP 132/85; PULSE 73; TEMP 98.4
[2022-01-22] VITALS (7 sets, daily range): BP systolic 134–168; BP diastolic 62–85; PULSE 63–72; TEMP 97.8–98.5
--- NOTE | 2022-01-22 04:30 | NUR ---
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 I WAS WALKING PAST PT'S ROOM TO GET ANOTHER PT A SANDWICH BAG, PT WAS WALKING TOWARDS HIS BATHROOM, WITH CLOTHES IN HAND, STATING HE WAS GOING TO TAKE A SHOWER. I ASKED HIM IF HE COULD PLEASE WAIT UNTIL WE COULD GET HIS IV SITE COVERED AND HIS TELE BOX OFF. PT AGREED. PT DENIED GENERAL PAIN, CHEST PAIN, PALPITATIONS, SOB, N,V,D OR DIZZINESS. PT WAS ABLE TO TAKE A SHOWER INDEPENDENTLY, ONCE HIS IV SITE WAS COVER. PT VERY UPBEAT ABOUT REHAB AND HIS BELIEF HE WILL RECOVER FROM HIS STROKE COMPLETELY. PT EXPRESSED NO ADDITIONAL NEEDS AT THIS TIME. CALL LIGHT WITHIN REACH.
[2022-01-22 06:41] LABS: CALCIUM 8.6 mg/dL (8.4-10.2); CREATININE, serum 4.15 mg/dL (0.72-1.25); PHOSPHOROUS 4.1 mg/dL (2.3-4.7)
--- NOTE | 2022-01-22 08:30 | NUR ---
Assessment complete. A&Ox4. Denies pain/nausea/shortness of breath. VS remain stable. Has already showered today. Sitting up in chair. Onlyc/o this AM is a rash noted to right wrist area just underneath his hospital arm band. States it has been bothering him for three days but got worse over night. This nurse removed arm band and applied lotion to area. Bilat equal hand tile sorter. Very minimal difference in leg strength-slight weakness noted in right. Facial drooping and slurred speech seems to be a little better. Plan of care discussed for this shift to include meds/calling for questions/concerns. Verbalizes understanding. Call light in reach. Will monitor.
--- NOTE | 2022-01-22 10:00 | NUR ---
Rash to right wrist no longer visible. Patient states it no longer itches and feels much better since removing arm ID band and lotion.
--- NOTE | 2022-01-22 11:20 | NUR ---
Heparin gtt restarted at 1800 units/hour at this time per protocol. Next HepXa due at 1720
--- NOTE | 2022-01-22 12:51 | NUR ---
Patient sitting up in bed eating lunch. Denies pain/nausea/shortness of breath. VS continue to be stable. Denies current needs. Call light in reach. Will monitor.
--- NOTE | 2022-01-22 17:17 | NUR ---
Patient had an uneventful day. Denied pain/nausea/shortness of breath. VS remained stable. Still with slurred speech/right side facial droop. Bilat ghand print decorator equal. Very slight drift noted in right lower ext. Visiting with at bedside. Denies current needs. Call light in reach. Will monitor.
[2022-01-23 03:31] VITALS: BP 146/70; PULSE 73; TEMP 97.6
--- NOTE | 2022-01-23 04:35 | NUR ---
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 PT RESTING IN HIS RECLINER WATCHING TV. PT DENIED GENERAL PAIN, CHEST PAIN, PALPITATIONS, SOB, N,V,D OR DIZZINESS. PT'S STROKE ASSESSMENTS REMAIN STABLE. PT EXPRESSED NO ADDITIONAL NEEDS AT THIS TIME. CALL LIGHT WITHIN REACH.
--- NOTE | 2022-01-23 04:50 | NUR ---
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 PT LAYING IN BED WATCHING TV. PT COMPLAINED OF GENERALIZED PAIN AND ITCHING. PT REQUESTED AND GIVEN BENADRYL BECAUSE IT WAS TOO EARLY TO GIVE TYLENOL. ONCE PT COULD HAVE TYLENOL, PT DIDN'T WANT IT. PT TOOK MOST OF HER EVENING MEDS, BUT CONTINUES TO REFUSE HER HEPARIN, SENOKOT AND MELATONIN. PT GIVEN A BED BATH OF THE AREAS SHE WOULD ALLOW ME TO WASH, AND A BRIEF AND CHUX CHANGE. PT EXPRESSED NO ADDITIONAL NEEDS AT THIS TIME. CALL LIGHT WITHIN REACH.
[2022-01-23 07:03] LABS: CALCIUM 8.4 mg/dL (8.4-10.2); CREATININE, serum 4.27 mg/dL (0.72-1.25); PHOSPHOROUS 3.7 mg/dL (2.3-4.7); POTASSIUM 5.2 mmol/L (3.5-4.5)
[2022-01-23 08:35] VITALS: BP 151/61; PULSE 42; TEMP 97.5
--- NOTE | 2022-01-23 09:50 | NUR ---
PT SITTING UP ON EDGE OF BED. MORNING MEDICATIONS GIVEN. SHIFT ASSESSMENT COMPLETED. PT STILL HAS SOME DIFFICULTY SWALLOWING AND GARBLED SPEECH, PT BELIEVES THIS IS IMPROVING THROUGHOUT STAY. VERY MILD RLE WEAKNESS/DRIFT. PT AMBULATES WELL. PT ONLY COMPLAINS OF CHRONIC KNEE PAIN. CALL LIGHT WITHIN REACH. UPDATED ON POC. WILL CONTINUE TO MONITOR.
[2022-01-23 12:33] VITALS: BP 142/55; PULSE 77; TEMP 98.3
[2022-01-23 17:31] VITALS: BP 156/55; PULSE 69; TEMP 98.1
[2022-01-23 19:55] VITALS: BP 151/75; PULSE 74; TEMP 97.8
[2022-01-23 23:40] VITALS: BP 153/78; PULSE 70; TEMP 98.1
[2022-01-24 04:10] VITALS: BP 154/81; PULSE 69; TEMP 98
--- NOTE | 2022-01-24 05:40 | NUR ---
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 PT RESTING IN BED WATCHING TV, EATING A BAG OF BBQ POTATO CHIPS. PT CONTINUES TO DENY GENERAL PAIN, CHEST PAIN, PALPITATIONS, SOB, N,V,D OR DIZZINESS AT THIS TIME, ALTHOUGH, PT STATED THAT SOMETIMES WHEN HE GETS UP, HE GETS DIZZY. PT'S STROKE ASSESSMENTS ALSO CONTINUE TO REMAIN STABLE. PT EXPRESSED NO ADDTIONAL NEEDS AT THIS TIME. CALL LIGHT WITHIN REACH.
--- NOTE | 2022-01-24 05:45 | NUR ---
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 PT LAYING IN BED WITH A TOWEL COVERING HER HEAD AND FACE. PT COMPLAINS OF BEING MISERABLE, AND NEEDING STRONGER PAIN MEDICATION OTHER THEN TYLENOL. PT ALSO COMPLAINS OF ITCHING. PT GIVEN BENADRYL FOR ITCHING AND TYLENOL, WHEN SHE COULD HAVE IT AGAIN, FOR PAIN. BUT SHE ONLY SEEMS TO NEED IT ONCE A NIGHT. PT CONTINUES TO SHIRA ITEMS AND FOOD IN HER BED. PT ALSO HAD SOME HIGHER B/P'S. WILL CONTINUE TO MONITOR. CALL LIGHT WITHIN REACH.
[2022-01-24 06:26] LABS: MEAN CELL VOLUME 89 fl (80.0-100.0); MEAN CORPUSCULAR HGB CONC 33 g/dl (33.0-37.0); MEAN PLATELET VOLUME 10.5 fl (7.4-10.4); PLATELET COUNT 189 K/mm3 (130-400); RED BLOOD COUNT 3.24 M/mm3 (4.20-5.60); REDCELL DISTRIBUTION WIDTH-CV 13.8 % (11.5-14.5)
[2022-01-24 06:32] LABS: HEMATOCRIT 28.9 % (42.0-52.0); HEMOGLOBIN 9.5 g/dl (13.5-18.0); MEAN CORPUSCULAR HEMOGLOBIN 29 pg (27-31)
[2022-01-24 06:42] LABS: ALBUMIN 3.2 gm/dL (3.4-4.8); CALCIUM 8.9 mg/dL (8.4-10.2); CREATININE, serum 4.25 mg/dL (0.72-1.25); PHOSPHOROUS 4.1 mg/dL (2.3-4.7)
[2022-01-24 07:32] VITALS: BP 153/76; PULSE 57; TEMP 98.4
[2022-01-24 11:31] VITALS: BP 148/76; PULSE 72; TEMP 98.4
[2022-01-24 15:37] VITALS: BP 145/70; PULSE 70; TEMP 98.1
[2022-01-24 19:30] VITALS: BP 148/64; PULSE 84; TEMP 98.1
[2022-01-24 23:02] VITALS: BP 152/58; PULSE 70; TEMP 98.3
--- NOTE | 2022-01-24 23:52 | NUR ---
SHIFT ASSESSMENT COMPLETED AT 08:45 PM. NO S/S OF DISTRESS NOTED. THE PATIENT DENIED NEEDS AT THIS TIME. CALL LIGHT WITHIN REACH. BED IN LOW POSITION AND PERSONAL BELONGINGS WITHIN REACH.
[2022-01-25 03:54] VITALS: BP 146/72; PULSE 81; TEMP 97.6
[2022-01-25 08:15] VITALS: BP 144/83; PULSE 83; TEMP 97.9
--- NOTE | 2022-01-25 08:30 | NUR ---
0830 Pt resting in bed. Morning medications administered. Tele was DC. AP RRR. INT in R AC intact; no edema, redness, or infiltration. Breakfast ordered. No complaints or needs at this time. Call light within reach.
--- NOTE | 2022-01-25 10:57 | NUR ---
Patient to discharge to [facility] today.
[2022-01-25] MEDS ORDERED: TYLENOL 325MG325 MG PO (11:05)
[2022-01-25] MEDS ORDERED: PLAVIX 75MG TAB75 MG PO (11:05)
[2022-01-25] MEDS ORDERED: APRESOLINE 25MG25 MG PO (11:05)
[2022-01-25] MEDS ORDERED: LIPITOR 40MG TA40 MG PO (11:05)
[2022-01-25] MEDS ORDERED: NOVLOG SQ (11:10)
[2022-01-25] MEDS ORDERED: SODIUM BICARBO650 MG PO (11:11)
[2022-01-25 11:15] VITALS: BP 139/59; PULSE 75; TEMP 97.9
--- NOTE | 2022-01-25 11:39 | NUR ---
Gave pt report to DEVIN Becerril. INT on R AC DC. Noon insulin administered. Pt transported on ground to room 336.
== END 2022-01-25 11:56 | DRG 65 ==
LOC: COL.ER 13:19 → MEDICAL 15:16
PROVIDERS: Emergency Medicine; Internal Medicine; ADMIT Internal Medicine
DX: I63.9 Cerebral infarction, unspecified (principal); N18.4 Chronic kidney disease, stage 4 (severe); N17.9 Acute kidney failure, unspecified; E87.2 Acidosis; I25.10 Atherosclerotic heart disease of native coronary artery without angina pectoris; R29.709 NIHSS score 9; J44.9 Chronic obstructive pulmonary disease, unspecified; G47.33 Obstructive sleep apnea (adult) (pediatric); N40.0 Benign prostatic hyperplasia without lower urinary tract symptoms; E11.40 Type 2 diabetes mellitus with diabetic neuropathy, unspecified; E87.5 Hyperkalemia; F03.90 Unspecified dementia, unspecified severity, without behavioral disturbance, psychotic disturbance, mood disturbance, and anxiety; D63.1 Anemia in chronic kidney disease; R29.810 Facial weakness; R47.81 Slurred speech; I12.9 Hypertensive chronic kidney disease with stage 1 through stage 4 chronic kidney disease, or unspecified chronic kidney disease; E11.22 Type 2 diabetes mellitus with diabetic chronic kidney disease; Z87.891 Personal history of nicotine dependence; Z95.5 Presence of coronary angioplasty implant and graft; Z79.82 Long term (current) use of aspirin; Z79.4 Long term (current) use of insulin
CPT/HCPCS: OP; 99231-AI; 99232-AI; G0378; J1815; J2405; J7030

== ENCOUNTER 2022-01-25 11:44 | Inpatient (IN) | payer OTHER ==
[~2022-01-25] VITALS: Ht 182.9 cm; Wt 108.9 kg
[~2022-01-25 11:44] MED LIST changes: +APRESOLINE 25MG25 MG PO; +LIPITOR 40MG TA40 MG PO; +NOVLOG SQ; +PLAVIX 75MG TAB75 MG PO; +TYLENOL 325MG325 MG PO
[2022-01-25 12:39] VITALS: BP 145/67; PULSE 81; TEMP 98
--- NOTE | 2022-01-25 13:33 | NUR ---
Pt. arrived to unit from Medical at approx 1211. Pt. ambulated with a FWW with nursing staff. Pt. is a/o x 4. Speech is slurred but appropriate. Right facial droop noted. Pt. denies pain/discomfort. is also present. Orientation provided to room/unit. Discussed with pt. the importance of calling for help before getting up/out of bed. Pt denies questions or additional needs. Admit intake and assessment completed. Pt. and denied any valuables. Call light is within pt's reach.
--- NOTE | 2022-01-25 14:20 | NUR ---
Pt ambulating in hallway with Phys. therapist and hit the back of right hand on a corner. Skin tears x 2 noted to back of right hand. Skin flaps present to both wounds with bleeding. Skin tears cleaned and covered with band aid. ST in room to eval pt.
[2022-01-25 16:55] VITALS: BP 153/46; PULSE 77
[2022-01-25 17:07] VITALS: BP 153/46; PULSE 77
[2022-01-25 17:20] VITALS: BP 153/46; PULSE 77
--- NOTE | 2022-01-25 18:12 | NUR ---
Chair alarm sounding. Pt. noted to be standing by sink to look for his cell phone. Reminded pt that he should call for assistance before getting up for fall prevention. Pt. v/u
--- NOTE | 2022-01-25 19:45 | NUR ---
PT USED CALL LIGHT FOR ASSIST. PT SITTING IN RECLINER. ASSISTED TO BR. AMB SLOW STEADY GAIT WITH CANE. PT ABLE TO MANAGE TOILETING TASKS PER SELF. TO BED. ABLE TO LIFT LEGS INTO BED. ENC PT TO USE CALL LIGHT FOR SAFETY. PT AGREED. CALL LIGHT IN REACH. BED ALARM SET.
[2022-01-26 05:58] VITALS: BP 159/48; PULSE 68; TEMP 98
--- NOTE | 2022-01-26 06:57 | NUR ---
BEDSIDE REPORT DONE. PATIENT RESTING IN BED.
--- NOTE | 2022-01-26 08:34 | NUR ---
PATIENT ALERT X 3 WITH SMALL DEMENTIA NOTED. PATIENT HAS A SLURRED SPEECH. EDEMA ON LOWER EXTREMITES(+1EDEMA) NO PAIN NOTED. NO INSULIN GIVEN AT THIS TIME. nOTICES SMALL CRACKLES ON UPPER LOBES BUT AFTER PATIENT COUGH THE CRACKLES GOES AWAY. SKIN TEAR IS NOTED. CHANGE BANDAID.
--- NOTE | 2022-01-26 15:50 | NUR ---
farmworker brooder farm met with patient to complete intake. Patient admitted from Medical unit and his Jaylene ([phone]) is present at bedside. Patient reports that he and his both live at home in [place]. Prior to his CVA Jaylene states he was 100% indpendent but he does utilize both a cane and a walker to assist with mobility. [facility] [place] [facility], but [facility] [place]. [facility] utilizes the [facility] for [facility]. He does not require home oxygen but does utilize a CPAP at night which is also managed through the [facility] as well. Per patient, he does not have a DPOA-HC established. SW reviewed the patient's top two goals of Improving his speech and the strength in his legs. Patient states that he "walked to the garden earlier and that was a lot". During coversation, patient expresses multiple times that he want's his speech to get better indicating that this is a very important goal for him to achieve. I informed both the patient and his on my role within in care and that i would check on him on Sunday.
[2022-01-26 17:20] VITALS: BP 125/72; PULSE 81; TEMP 98.5
--- NOTE | 2022-01-26 19:30 | NUR ---
PT RESTING IN BED. NO DISTRESS. WATCHING TV. SLURRED SPEECH. SL GAIT INSTABILITY. USES CANE. CALL LIGHT IN REACH. BED ALARM SET.
[2022-01-27 05:41] VITALS: BP 149/49; PULSE 76; TEMP 97.9
--- NOTE | 2022-01-27 06:44 | NUR ---
BEDSIDE REPORT DONE ORDER. PATIENT RESTIN IN BED WITH NO DISTRESS NOTED. CALL LIGHT IN REACH
--- NOTE | 2022-01-27 09:59 | NUR ---
ASSESSMENT DONE ORDER. PATIENT ALERT BUT HAVE SLURRED SPEECH. PATIENT LUNG SOUND WITH SLIGHT CRACKLES BUT WHEN PATIENT COUGH, THE CRACKLES DECREASE. BOWEL SOUND ACTIVE IN ALL 4 QUADS. PATIENT NEED 1 PERSON ASSISTANCE WITH WALKING (GAIT BELT AND CANE).. WE STARTED ATIVAN AND MEATONIN 6MG LAST NIGHT DUE TO SLIGHT AGITATION WITH . MELATONIN WAS USE LAST NIGHT AND IT HELP PATIENT SLEEP FOR A FEW HOURS.
[2022-01-27 17:00] VITALS: BP 143/112; PULSE 69; TEMP 98.6
[2022-01-27 17:48] VITALS: BP 150/65
--- NOTE | 2022-01-27 18:38 | NUR ---
PATIENT WAS VERY CONCERN REGARDING HIS NOT SHOWING UP TODAY. BLOOD PRESSURE WAS HIGH. FOUND OUT THAT PATIENT WAS IN [facility] AND PATIENT WAS INFORM. RECHECK BLOOD PRESSURE AFTER 2 HOURS AND IT DECREASE TO 150/65. PATIENT WAS SLIGHTLY SHAKING/TREMORS BUT STATED THAT HE IS CALMING DOWN NOW. PATIENT ATE 100% OF HIS MEALS TODAY. NO ISSUE WITH THERAPY TODAY. PATIENT ABLE TO GET UP WITH SBA IF NEED(GAIT BELT AND CANE). PATIENT HAD A MED BOWEL MOVEMENT TODAY.
--- NOTE | 2022-01-27 18:53 | NUR ---
RECEIVED CHANGE OF SHIFT REPORT FROM DAY SHIFT RN.
[2022-01-28 05:57] VITALS: BP 134/55; PULSE 65; TEMP 97.7
--- NOTE | 2022-01-28 07:36 | NUR ---
Shift report received from shift supervisor film processing RN
--- NOTE | 2022-01-28 07:37 | NUR ---
CHANGE OF SHIFT REPORT GIVEN TO DAY SHIFT RNBRYANT.
--- NOTE | 2022-01-28 09:09 | NUR ---
Pt off the unit to ambulate w/ PT in hallway
--- NOTE | 2022-01-28 11:13 | NUR ---
Pt is back from PT. is in the room to visit. Pt. denies pain/discomfort. Enjoyed his therapy today. Pt. denies additional needs. Call light is in his reach. Chair alarm is on
--- NOTE | 2022-01-28 15:21 | NUR ---
Pt sitting in recliner. remains in the room to visit. Pt. denies pain/discomfort. Denies additional needs. Call light is in his reach. Chair alarm is on
[2022-01-28 17:13] VITALS: BP 138/63; PULSE 73; TEMP 98.4
[2022-01-29 05:39] VITALS: BP 167/67; PULSE 74; PULSE 94; TEMP 97.4
--- NOTE | 2022-01-29 07:15 | NUR ---
Shift report received from hand lens polisher RN
--- NOTE | 2022-01-29 12:33 | NUR ---
Pt supervised as he ambulated from recliner to bathroom w/FFW. He denies pain or discomfort. Denies any additional needs. Call light is in his reach. Chair alarm is turned on
--- NOTE | 2022-01-29 15:30 | NUR ---
Pt supervised as he transferrred from recliner to bed using his cane. is in the room to visit. Pt. denies pain/discomfort. Denies additional needs. Call light is within his reach. Bed alarm is on
[2022-01-29 16:57] VITALS: BP 145/65; PULSE 73; TEMP 97.9
--- NOTE | 2022-01-29 18:58 | NUR ---
RECEIVED CHANGE OF SHIFT REPORT FROM DAY SHIFT RN.
[2022-01-30 05:55] VITALS: BP 153/56; PULSE 68; TEMP 98.1
--- NOTE | 2022-01-30 07:05 | NUR ---
CHANGE OF SHIFT REPORT GIVEN TO DAY SHIFT RNAARON.
--- NOTE | 2022-01-30 07:08 | NUR ---
BEDSIDE REPORT DONE ORDER. PATIENT RESTING IN BED, CALL LIGHT IN REACH
--- NOTE | 2022-01-30 08:46 | NUR ---
PATIENT ALERT AND ORIENTED X 4 WITH NO MEMORY ISSUE. STILL HAVE SOME SLURRED SPEECH. LUNG SLIGHT RALES BUT WITH COUGH, THE RALES GOES AWAY. NO PHLEMG NOTED. PATIENT ABLE TO GET UP AND WALK TO THE BATHRROM WITH SB IF NEEDED.
--- NOTE | 2022-01-30 13:30 | NUR ---
Admission QIM scores were reviewed by the team. Code of 4 chosen for toilet hygiene was determined by team discussion to be the most usual performance before interventions for this patient during the assessment period. Code of 3 chosen for walk 150 feet was determined by team discussion to be the most usual performance before interventions for this patient during the assessment period. Code of 4 chosen for 4 step was determined by team discussion to be the most usual performance before interventions for this patient during the assessment period.--Kay Frey, PD
--- NOTE | 2022-01-30 16:15 | NUR ---
CAME IN TO SEE . PATIENT WAS YELLING AND CUSSING AROUND TRYING TO LEAVE THE FACILILTY. PATIENT SHAKING ALOT AND WITH SLURRED SPEAK. HAVING A HARD TIME UNDERSTAND HIM BUT HE UPSET DUE TO PERSONAL REASON AT HOME. ATIVAN 0.6MG WAS GIVEN AROUND 4:31PM.AT THIS TIME , PATIENT IN RECLINER RESTING TRYING TO CALM DOWN.
[2022-01-30 17:57] VITALS: BP 136/61; PULSE 74; TEMP 98.6
--- NOTE | 2022-01-30 22:04 | NUR ---
PT IN BED RESTING IN NO APPARENT DISTRESS UPON ASSESSMENT. PT WITH NO COMPLAINTS OF PAIN AT THIS TIME. WILL CONTINUE TO MONITOR. BED ALARM SET
[2022-01-31 04:56] VITALS: BP 154/58; PULSE 76; TEMP 97.9
[2022-01-31 06:26] LABS: BASO # 0.1 K/mm3 (0.0-0.2); EOS # 0.2 K/mm3 (0.0-0.7); EOS % 2.9 % (0.0-4.0); GRAN # 4.6 K/mm3 (1.4-6.5); GRAN % 64.3 % (42.2-75.2); LYMPH # 1.5 K/mm3 (1.2-3.4); LYMPH % 21.1 % (20.0-51.0); MEAN CELL VOLUME 91 fl (80.0-100.0); MEAN CORPUSCULAR HGB CONC 33 g/dl (33.0-37.0); MEAN PLATELET VOLUME 10.7 fl (7.4-10.4); MONO # 0.7 K/mm3 (0.1-0.6); MONO % 10.3 % (1.7-9.3); PLATELET COUNT 175 K/mm3 (130-400); RED BLOOD COUNT 2.83 M/mm3 (4.20-5.60); REDCELL DISTRIBUTION WIDTH-CV 13.5 % (11.5-14.5)
[2022-01-31 06:28] LABS: HEMATOCRIT 25.6 % (42.0-52.0); HEMOGLOBIN 8.4 g/dl (13.5-18.0); MEAN CORPUSCULAR HEMOGLOBIN 30 pg (27-31)
--- NOTE | 2022-01-31 07:17 | NUR ---
RECEIVED REPORT, PATIENT RESTING IN BED WITH NO DISTRESS. CALL LIGHT IN REACH
[2022-01-31 07:21] LABS: CREATININE, serum 4.69 mg/dL (0.72-1.25); POTASSIUM 4.3 mmol/L (3.5-4.5)
[2022-01-31 07:22] LABS: CALCIUM 8.5 mg/dL (8.4-10.2)
--- NOTE | 2022-01-31 11:00 | NUR ---
PATIENT RESTING LAST NIGHT , WAS NOT UPSET ANYMORE. ATE WELL THIS AM. LUNG STILL HAVE SMALL FINE CRACKLES BUT WHEN A COUGH, THECRACKLES DISAPPEAR. BOWEL SOUND ACTIVE.
[2022-01-31 17:32] VITALS: BP 148/86; PULSE 80; TEMP 98.2
--- NOTE | 2022-01-31 21:26 | NUR ---
PT IN BED UPON ASSESSMENT AND MEDICATION PASS. NO COMPLAINTS OF PAIN OR CONCERNS EXPRESSED AT THIS TIME. BED ALARM SET AND CALL LIGHT WITHIN REACH.
[2022-02-01 05:09] VITALS: BP 148/76; PULSE 76; TEMP 98.3
--- NOTE | 2022-02-01 07:06 | NUR ---
Shift report received from sales estimator RN
--- NOTE | 2022-02-01 10:05 | NUR ---
Patient/Family meeting conducted w/ pt & his & friend. Also present was the Diving Judge, PT, OT, ST & director motion picture. The team talked about how pt has been doing, which pt & family were pleased to hear he was doing well. Informed them of d/c for 02/03/22 w/ recommendation for home w/ Outpatient PT/OT/ST. They asked questions, which the team answered.
--- NOTE | 2022-02-01 11:16 | NUR ---
Pt sitting up in recliner. Had a family meeting this morning. He denies pain/discomfort. Denies additional needs. Call light is in his reach. Chair alarm is on
[2022-02-01 17:19] VITALS: BP 136/68; PULSE 76; TEMP 98.2
--- NOTE | 2022-02-01 19:00 | NUR ---
RECEIVED CHANGE OF SHIFT REPORT FROM DAY SHIFT RN.
[2022-02-02 05:43] VITALS: BP 137/71; PULSE 71; TEMP 99
--- NOTE | 2022-02-02 06:37 | NUR ---
BEDSIDE REPORT DONE. PATIENT UP AND GOT AN ATIVAN AT 630AM. PATIENT RESTLESS. CALL LIGHT IN REACH
--- NOTE | 2022-02-02 07:19 | NUR ---
CHANGE OF SHIFT REPORT GIVEN TO DAY SHIFT RNAARON
--- NOTE | 2022-02-02 15:14 | NUR ---
Verified with patient that he is on the [facility] Blue team. Phone call made and message left for the [facility] SW to inquire about the steps to [facility] to the location.
--- NOTE | 2022-02-02 16:05 | NUR ---
Phone call received from the PA stating that in order for the [facility] too [facility] locations, he has to call the location and submit a request. No other democrat can do this on his behalf.
[2022-02-02 16:49] VITALS: BP 142/67; PULSE 78; TEMP 98.1
--- NOTE | 2022-02-02 18:29 | NUR ---
ASSESSMENT WAS DONE AT 8AM. PATIENT ALERT AND ORIENT X4 . DISCHARGING TOMORROW TO HOME WITH OUTPATIENT THERAPY. PATIENT MOD 1 IN ROOM. ATIVAN WAS GIVEN EARLY THIS MORNING DUE TO NOT ABLE TO SLEEP LAST NIGHT. LUNG CLEAR AT THIS TIME BUT PATIENT TEND TO COUGH WITH NO PHLEMG NOTED. BOWEL SOUND ACTIVE IN ALL 4 QUADS. PATIENT ABLE TO TAKE MEDICATION WHOLE WITH OUT ANY ISSUE. PATIENT APPETITE GOOD EATING ALL MEALS. PATIENT USING CANE FOR STABIBILITY. CALL LIGHT IN REACH.SKIN IS CLEAR OF SORE
--- NOTE | 2022-02-02 20:30 | NUR ---
PT RESTING IN BED. RELAXED AND CALM. MOD I IN ROOM. SEE MAR FOR ATIVAN GIVEN PER REQUEST. ENC PT TO CALL FOR ASSIST IF UNSTEADY. PT AGREED. PT DENIES NEEDS AT THIS TIME. CALL LIGHT IN REACH.
[2022-02-02] MEDS ORDERED: PROAIR HFA0.09 MG/AC IH (21:55)
[2022-02-02] MEDS ORDERED: PLAVIX 75MG TAB75 MG PO (21:55)
[2022-02-02] MEDS ORDERED: APRESOLINE 25MG25 MG PO (21:56)
[2022-02-02] MEDS ORDERED: SODIUM BICARBO650 MG PO (21:57)
[2022-02-03 05:20] VITALS: BP 106/81; PULSE 74; TEMP 97.9
--- NOTE | 2022-02-03 06:47 | NUR ---
Shift report received from picker operator RN
[2022-02-03] MEDS ORDERED: LIPITOR 40MG TA40 MG PO (08:44)
[2022-02-03] MEDS ORDERED: ATIVAN 0.50.5 MG/TAB PO (11:54)
--- NOTE | 2022-02-03 13:46 | NUR ---
Discharge QIM scores were reviewed by the team. Code of 6 chosen for walk 50 feet w/ 2 turns was determined by team discussion to be the most usual performance for this patient during the discharge assessment period. Code of 6 chosen for 4 step was determined by team discussion to be the most usual performance for this patient during the discharge assessment period.--Kay Frey,
--- NOTE | 2022-02-03 14:07 | NUR ---
Pt. Discharge Summary and Meds reviewed with patient and his . Discussed keeping follow up appointments. They had no further questions. Pt. escorted by WC to vehicle and seatbelted for ride home
--- NOTE | 2022-02-04 08:09 | NUR ---
(LATE ENTRY) SW met with patient as he is set to discharge home. Patient is excited to return home and feels like he made a lot of improvement during his stay. Patient verbalizes his frustrations about his personal life. SW allowed time for him to do this and offered emotional support. Patient's calls stating that she is trying to find a way to the hospital but they will need help with transportation back home. Informed the patient and his spouse that i will feed mixer helper them. Patient is provided an Uber to get home. SW informmed the patient that i will fax his outpatient orders to [facility] and they will call him to schedule an appointment. Patient reports that he has friends and religion memebers that would be able to provide him transportation to therapy. Patient's orders faxed to [facility].
== END 2022-02-03 14:00 | disposition home or self-care (01) | DRG 57 ==
PROVIDERS: ADMIT Physical Medicine & Rehabilitation Sports Medicine
DX: I69.351 Hemiplegia and hemiparesis following cerebral infarction affecting right dominant side (principal); E87.2 Acidosis; N18.4 Chronic kidney disease, stage 4 (severe); I69.322 Dysarthria following cerebral infarction; I69.392 Facial weakness following cerebral infarction; I69.391 Dysphagia following cerebral infarction; R13.10 Dysphagia, unspecified; E11.22 Type 2 diabetes mellitus with diabetic chronic kidney disease; J44.9 Chronic obstructive pulmonary disease, unspecified; E87.5 Hyperkalemia; I12.9 Hypertensive chronic kidney disease with stage 1 through stage 4 chronic kidney disease, or unspecified chronic kidney disease; N40.0 Benign prostatic hyperplasia without lower urinary tract symptoms; R26.89 Other abnormalities of gait and mobility; G47.33 Obstructive sleep apnea (adult) (pediatric); F03.90 Unspecified dementia, unspecified severity, without behavioral disturbance, psychotic disturbance, mood disturbance, and anxiety; D63.1 Anemia in chronic kidney disease; I25.10 Atherosclerotic heart disease of native coronary artery without angina pectoris; Z95.5 Presence of coronary angioplasty implant and graft; Z79.4 Long term (current) use of insulin; Z73.6 Limitation of activities due to disability; Z87.891 Personal history of nicotine dependence; Z79.899 Other long term (current) drug therapy; J34.89 Other specified disorders of nose and nasal sinuses; I49.3 Ventricular premature depolarization
CPT/HCPCS: J1815

== ENCOUNTER 2022-02-06 16:44 | Observation (INO) | payer OTHER, MEDICARE ==
[~2022-02-06] VITALS: Ht 188 cm; Wt 109.9 kg
[~2022-02-06 16:44] MED LIST changes: +ATIVAN 0.50.5 MG/TAB PO
[2022-02-06 18:02] LABS: BASO # 0.1 K/mm3 (0.0-0.2); BASO % 0.7 % (0.0-2.0); EOS # 0.3 K/mm3 (0.0-0.7); EOS % 3.7 % (0.0-4.0); GRAN % 68.9 % (42.2-75.2); LYMPH # 1.3 K/mm3 (1.2-3.4); LYMPH % 18.2 % (20.0-51.0); MEAN CELL VOLUME 90 fl (80.0-100.0); MEAN CORPUSCULAR HGB CONC 33 g/dl (33.0-37.0); MEAN PLATELET VOLUME 10.5 fl (7.4-10.4); MONO # 0.6 K/mm3 (0.1-0.6); MONO % 8.2 % (1.7-9.3); PLATELET COUNT 235 K/mm3 (130-400); RED BLOOD COUNT 2.68 M/mm3 (4.20-5.60); REDCELL DISTRIBUTION WIDTH-CV 13.5 % (11.5-14.5)
[2022-02-06 18:03] LABS: HEMATOCRIT 24.2 % (42.0-52.0); HEMOGLOBIN 7.9 g/dl (13.5-18.0); MEAN CORPUSCULAR HEMOGLOBIN 29 pg (27-31)
[2022-02-06 18:20] LABS: BILIRUBIN,TOTAL 0.3 mg/dL (0.2-1.2); CALCIUM 8.6 mg/dL (8.4-10.2); CREATININE, serum 4.49 mg/dL (0.72-1.25); POTASSIUM 4.6 mmol/L (3.5-4.5); TOTAL PROTEIN 6.5 gm/dL (6.2-8.1)
[2022-02-06 18:25] LABS: TROPONIN-I 0.022 ng/mL (0.00-0.033)
[2022-02-06 20:43] LABS: INR 1.1 (0.8-3.0)
[2022-02-06 20:46] LABS: PARTIAL THROMBOPLASTIN TIME 35.4 SECONDS (26.0-37.0)
[2022-02-07] VITALS (8 sets, daily range): BP systolic 145–157; BP diastolic 56–80; PULSE 59–79; TEMP 97.2–98.3
--- NOTE | 2022-02-07 06:09 | NUR ---
PATIENT RESTED QUIETLY THIS SHIFT. PATIENT HAD NO COMPLAINTS OF PAIN AND RECEIVED NO PRNS. PATIENT UP TO VOID SEVERAL TIMES.
[2022-02-07 07:03] LABS: BASO # 0.1 K/mm3 (0.0-0.2); BASO % 1.2 % (0.0-2.0); EOS # 0.2 K/mm3 (0.0-0.7); EOS % 3.5 % (0.0-4.0); GRAN # 4.1 K/mm3 (1.4-6.5); GRAN % 58.9 % (42.2-75.2); LYMPH # 1.9 K/mm3 (1.2-3.4); MEAN CELL VOLUME 94 fl (80.0-100.0); MEAN CORPUSCULAR HGB CONC 32 g/dl (33.0-37.0); MEAN PLATELET VOLUME 10.7 fl (7.4-10.4); MONO # 0.6 K/mm3 (0.1-0.6); MONO % 9.1 % (1.7-9.3); PLATELET COUNT 219 K/mm3 (130-400); RED BLOOD COUNT 2.72 M/mm3 (4.20-5.60); REDCELL DISTRIBUTION WIDTH-CV 13.5 % (11.5-14.5)
[2022-02-07 07:06] LABS: HEMATOCRIT 25.5 % (42.0-52.0); HEMOGLOBIN 8.2 g/dl (13.5-18.0); MEAN CORPUSCULAR HEMOGLOBIN 30 pg (27-31)
--- NOTE | 2022-02-07 07:08 | NUR ---
BEDSIDE REPORT DONE. PATIENT RESTING IN BED.
[2022-02-07 07:18] LABS: CALCIUM 8.7 mg/dL (8.4-10.2); CREATININE, serum 4.36 mg/dL (0.72-1.25); MAGNESIUM 1.7 mg/dL (1.6-2.6); POTASSIUM 4.2 mmol/L (3.5-4.5)
--- NOTE | 2022-02-07 10:04 | NUR ---
ASSESSMENT DONE. PATIENT ALERT X 4 WITH NO MEMORY ISSUE. PATIENT LUNG SOUND SLIGHTLY WHEEZING BUT NO PHLEM NOTED. BOWEL SOUND ACTIVE. PATIENT NPO FOR FURTHER TESTING ON CARDIO. PT/OT WILL BE WORKING WITH HIM. PATIENT BLOOD SUGAR HAS BEEN UNDER 150.
--- NOTE | 2022-02-07 10:10 | NUR ---
SPOKE WITH DR MARY AND CARRIE BELTRAN REGARDING NPO AND MEDICATION. BOTH WAS OKAY TO GIVE MEDICATION WTIH SMALL SIPS OF WATER
--- NOTE | 2022-02-07 11:18 | NUR ---
HEPARIN CAME BACK WITH 0.20 LAB. WHEN AND INCREASE RATE WITH MYKE. PER COMPUTER RATE SHOULD BE 1000, BUT IT WAS IT WAS 1250. SPOKE WITH CARRIE WHO HELP US AND SHE STATED TO INCREASE TO 1400 DUE TO WE NEED TO INCREAE 150. SO RIGHT NOW RATE AT 1400 HEP. HEPX WILL BE REDRAW IN 6 HOURS.
--- NOTE | 2022-02-07 12:41 | NUR ---
Denise: [employer] day [employer] Situation: conservator artifacts stopped by room on rounds Background: Pt was resting and content Assessment: no needs right now. Pt appreciated the visit Recommendation: conservator artifacts will follow up as needed
--- NOTE | 2022-02-07 14:49 | NUR ---
Servicenow Administrator met with patient to discuss discharge planning. Arcelia was discharged from this hospital's Inpatient Rehab unit on Sunday and was discharged home with outpatient PT/OT. Patient lives in [place] with his , Jaylene who he reports is his DPOA-HC. Patient goes to the [facility] for primary care and is on the Blue Team. Patient has medications mailed to him by the [facility]. Patient has a cane and walker at home. Patient reports he has been doing well with ADLS and plans to return home at time of discharge. Discharge Plan: Home
--- NOTE | 2022-02-07 21:51 | NUR ---
Patient assessed around 2100. Alert and oriented, and able to make needs known. Denies having pain and discomfort at this time. Continues on Heparin drip per orders. Aware that he is NPO after midnight, including water. Patient voices no questions, needs, or concerns at this time. In bed with call light within reach.
[2022-02-08] VITALS (9 sets, daily range): BP systolic 115–161; BP diastolic 64–86; PULSE 59–93; TEMP 97.4–98.3
--- NOTE | 2022-02-08 05:55 | NUR ---
Patient has denied having pain and discomfort this shift. Continues on Heparin drip per orders. HepXa was within goal range at 0015. Recheck scheduled for 614. Voices no questions, needs, or concerns at this time. Has been NPO after midnight for Lexiscan today. In bed with call light within reach.
--- NOTE | 2022-02-08 07:30 | NUR ---
Patient resting in bed, las hep gtt at goal. Next lab tomorrow morning per protocol.
--- NOTE | 2022-02-08 08:00 | NUR ---
Patient is resting in bed, alert and oriented x 4, VSS, has been NPO from midnight. Telemetry in place, NSR. Denies chest pain or other discomfort. Getting heg gtt a 1650 units per hour at goal. Assessment completed, no other needs at this time. Call light within reach.
--- NOTE | 2022-02-08 10:02 | NUR ---
Patient is back from [facility], denies any discomfort at this time. Alert and oriente x 4. Continue monitoring.
--- NOTE | 2022-02-08 12:19 | NUR ---
HEP GTT discontinued per orders. Consent for loop recorder impl. signed.
[2022-02-08] MEDS ORDERED: TOPROL XL 25MG25 MG PO (15:19)
[2022-02-08] MEDS ORDERED: LIPITOR 80MG80 MG PO (15:21)
--- NOTE | 2022-02-08 16:05 | NUR ---
Patient and were provided with discharge information. All questions answered. IV access and telemetry were discontinued. Pt is taken to the hospital entrance by ELVIRA Sanabria, by wheelchair.
== END 2022-02-08 16:09 | disposition home or self-care (01) ==
LOC: COL.ER 16:44 → MEDICAL 20:53
PROVIDERS: Physician Assistant; Student in an Organized Health Care Education/Training Program; ADMIT Internal Medicine
DX: R07.9 Chest pain, unspecified (principal); R06.02 Shortness of breath; E87.5 Hyperkalemia; D64.9 Anemia, unspecified; E11.22 Type 2 diabetes mellitus with diabetic chronic kidney disease; I12.9 Hypertensive chronic kidney disease with stage 1 through stage 4 chronic kidney disease, or unspecified chronic kidney disease; N18.4 Chronic kidney disease, stage 4 (severe); N40.0 Benign prostatic hyperplasia without lower urinary tract symptoms; F03.90 Unspecified dementia, unspecified severity, without behavioral disturbance, psychotic disturbance, mood disturbance, and anxiety; I25.10 Atherosclerotic heart disease of native coronary artery without angina pectoris; Z95.5 Presence of coronary angioplasty implant and graft; G47.33 Obstructive sleep apnea (adult) (pediatric); J44.9 Chronic obstructive pulmonary disease, unspecified; Z79.4 Long term (current) use of insulin; Z86.73 Personal history of transient ischemic attack (TIA), and cerebral infarction without residual deficits; Z79.02 Long term (current) use of antithrombotics/antiplatelets; Z79.82 Long term (current) use of aspirin; Z79.899 Other long term (current) drug therapy
CPT/HCPCS: A9500; C1764; G0378; J1644; J1815; J2270; J2785

== ENCOUNTER → 2022-06-30 | Outpatient (CLI) | payer OTHER, MEDICARE ==
[~2022-06-30] MED LIST changes: +TAMIFLU30 MG PO; +TOPROL XL 25MG25 MG PO; +VOLTAREN SR25 MG/TAB PO
[2022-06-30 15:19] LABS: HEMATOCRIT 27.8 % (42.0-52.0); HEMOGLOBIN 9.4 g/dl (13.5-18.0)
[2022-06-30 15:28] LABS: CALCIUM 8.8 mg/dL (8.4-10.2); CREATININE, serum 4.71 mg/dL (0.72-1.25); POTASSIUM 4.2 mmol/L (3.5-4.5)
== END ==
LOC: COL.LAB 14:52
PROVIDERS: Internal Medicine Nephrology
DX: N17.9 Acute kidney failure, unspecified (principal); N18.32 Chronic kidney disease, stage 3b

== ENCOUNTER 2022-08-15 12:49 | Outpatient (RCR) | payer OTHER, MEDICARE | END 2022-08-15 13:07 | LOC: MKS.ESL.PT 12:49 | DX: I69.351 Hemiplegia and hemiparesis following cerebral infarction affecting right dominant side (principal) ==

== ENCOUNTER 2022-08-16 21:46 | Emergency (ER) | payer OTHER, MEDICARE ==
[~2022-08-16] VITALS: Ht 188 cm; Wt 109.5 kg
[2022-08-16 21:47] VITALS: TEMP 98.8
[2022-08-16 22:25] LABS: BASO # 0.1 K/mm3 (0.0-0.2); BASO % 0.9 % (0.0-2.0); EOS # 0.3 K/mm3 (0.0-0.7); EOS % 3.1 % (0.0-4.0); GRAN % 66.7 % (42.2-75.2); LYMPH % 21.8 % (20.0-51.0); MEAN CELL VOLUME 93 fl (80.0-100.0); MEAN CORPUSCULAR HGB CONC 33 g/dl (33.0-37.0); MEAN PLATELET VOLUME 10.3 fl (7.4-10.4); MONO # 0.7 K/mm3 (0.1-0.6); MONO % 7.2 % (1.7-9.3); PLATELET COUNT 207 K/mm3 (130-400); RED BLOOD COUNT 2.87 M/mm3 (4.20-5.60); REDCELL DISTRIBUTION WIDTH-CV 13.1 % (11.5-14.5)
[2022-08-16 22:33] LABS: HEMATOCRIT 26.8 % (42.0-52.0); HEMOGLOBIN 8.9 g/dl (13.5-18.0); MEAN CORPUSCULAR HEMOGLOBIN 31 pg (27-31)
[2022-08-16 22:39] LABS: INR 1.1 (0.8-3.0); PROTHROMBIN TIME 12.2 SECONDS (9.7-12.8)
[2022-08-16 22:42] LABS: PARTIAL THROMBOPLASTIN TIME 31.9 SECONDS (26.0-37.0)
[2022-08-16 22:49] LABS: TROPONIN-I 0.012 ng/mL (0.00-0.033)
[2022-08-16 22:57] LABS: ALANINE AMINOTRANSFERASE 12 U/L (0-55); ALBUMIN 3.8 gm/dL (3.4-4.8); ALKALINE PHOSPHATASE 66 U/L (40-150); ANION GAP 12 mmol/L (7-16); AST,SGOT 18 U/L (5-34); BILIRUBIN,TOTAL 0.4 mg/dL (0.2-1.2); BLOOD UREA NITROGEN 68 mg/dL (8-26); CALCIUM 8.6 mg/dL (8.4-10.2); CARBON DIOXIDE 17 mmol/L (23-31); CHLORIDE 112 mmol/L (98-107); CREATININE, serum 5.09 mg/dL (0.72-1.25); GLUCOSE 110 mg/dL (70-99); POTASSIUM 4.6 mmol/L (3.5-4.5); SODIUM 141 mmol/L (136-145); TOTAL PROTEIN 7.1 gm/dL (6.2-8.1)
[2022-08-16 22:58] LABS: ALCOHOL(ethanol),MEDICAL < 10 mg/dL (0-10)
[2022-08-17 01:26] LABS: COLLECTION METHOD CLEAN CATCH
[2022-08-17 01:31] LABS: URINE APPEARANCE Clear (CLEAR/HAZY); URINE BLOOD 1+ (NEGATIVE); URINE COLOR Yellow (YELLOW); URINE GLUCOSE TRACE (NEGATIVE); URINE KETONE Negative (NEGATIVE); URINE NITRATE Negative (NEGATIVE); URINE PROTEIN(semi-quant) 3+ (NEGATIVE); URINE UROBILINOGEN 0.2 E.U/dL (0.2-1.0)
[2022-08-17 01:32] LABS: SQUAMOUS EPITHELIAL 0-2 /hpf (0-10); URINE BACTERIA None Seen /hpf (NONE SEEN); URINE RBC 0-2 /hpf (0-2)
[2022-08-17 01:41] LABS: TRICYCLIC ANTIDEPRESS URINE NEGATIVE
[2022-08-17 01:58] VITALS: BP 186/89; PULSE 55
== END 2022-08-17 02:17 | disposition home or self-care (01) ==
LOC: COL.ER 21:46
PROVIDERS: Emergency Medicine
DX: S00.03XA Contusion of scalp, initial encounter (principal); D64.9 Anemia, unspecified; E87.5 Hyperkalemia; N28.9 Disorder of kidney and ureter, unspecified; I51.7 Cardiomegaly; J81.1 Chronic pulmonary edema; Z86.73 Personal history of transient ischemic attack (TIA), and cerebral infarction without residual deficits; Z95.818 Presence of other cardiac implants and grafts; Z79.01 Long term (current) use of anticoagulants; Z79.02 Long term (current) use of antithrombotics/antiplatelets; Z28.311 Partially vaccinated for COVID-19; W10.9XXA Fall (on) (from) unspecified stairs and steps, initial encounter; W22.8XXA Striking against or struck by other objects, initial encounter; Y92.009 Unspecified place in unspecified non-institutional (private) residence as the place of occurrence of the external cause
CPT/HCPCS: J2270; J7120

== ENCOUNTER 2022-08-28 08:26 | Inpatient (IN) | payer OTHER, MEDICARE ==
[~2022-08-28] VITALS: Ht 182.9 cm; Wt 108.0 kg
[~2022-08-28 08:26] MED LIST changes: +PERCOCET 325 MG1 TA2 PO
[2022-08-28 08:55] LABS: BASO # 0.1 K/mm3 (0.0-0.2); BASO % 0.8 % (0.0-2.0); EOS # 0.4 K/mm3 (0.0-0.7); EOS % 3.6 % (0.0-4.0); GRAN # 7.7 K/mm3 (1.4-6.5); GRAN % 78.4 % (42.2-75.2); LYMPH # 0.9 K/mm3 (1.2-3.4); LYMPH % 9.2 % (20.0-51.0); MEAN CELL VOLUME 97 fl (80.0-100.0); MEAN CORPUSCULAR HGB CONC 31 g/dl (33.0-37.0); MEAN PLATELET VOLUME 10.3 fl (7.4-10.4); MONO # 0.8 K/mm3 (0.1-0.6); MONO % 7.8 % (1.7-9.3); PLATELET COUNT 232 K/mm3 (130-400); RED BLOOD COUNT 2.63 M/mm3 (4.20-5.60); REDCELL DISTRIBUTION WIDTH-CV 13.2 % (11.5-14.5)
[2022-08-28 08:59] LABS: HEMATOCRIT 25.5 % (42.0-52.0); MEAN CORPUSCULAR HEMOGLOBIN 30 pg (27-31)
[2022-08-28 09:01] LABS: ALBUMIN 3.5 gm/dL (3.4-4.8); BILIRUBIN,TOTAL 0.4 mg/dL (0.2-1.2); C-REACTIVE PROTEIN 7.59 mg/dL (0.00-0.50); CALCIUM 9.2 mg/dL (8.4-10.2); CREATININE, serum 7.2 mg/dL (0.72-1.25); POTASSIUM 4.9 mmol/L (3.5-4.5); TOTAL PROTEIN 7.1 gm/dL (6.2-8.1)
--- NOTE | 2022-08-28 10:09 | NUR ---
Chef Under met with Patient at Nurse's request due to PAtient's chronic homelessness. Patient reported to have discharged from the hospital during last visit to a hotel. Patient has since left the hotel and is staying with a friend, which he reports he does not intend to return to. On assessment of Patient's resources, Patient reports to recieve ~$3000 per month from [place] disability and Social Security. Patient is , though the patient reports the relationship is conflicted due to lack of positive support from his . SW briefed Patient on resource of [facility]. Patient supported this resource and reqiests SW contact [facility] to establish communications. DEVONTE contacted [facility] who reported to have a [facility] hotel services sales representative in their office who is not in at this time. DEVONTE provided PAtient's information with contact number: [phone] and requested the [facility] rep contact Patient.
[2022-08-28 11:20] VITALS: BP 115/36; PULSE 78; TEMP 97.7
[2022-08-28 15:45] VITALS: BP 132/50; PULSE 73; TEMP 98.4
[2022-08-28 16:50] LABS: COLLECTION METHOD CLEAN CATCH
[2022-08-28 17:00] LABS: URINE APPEARANCE Clear (CLEAR/HAZY); URINE COLOR Yellow (YELLOW)
[2022-08-28 17:01] LABS: URINE GLUCOSE TRACE (NEGATIVE); URINE KETONE Negative (NEGATIVE); URINE PROTEIN(semi-quant) 3+ (NEGATIVE)
[2022-08-28 17:02] LABS: PH 5.5 (5.0-8.5); URINE BLOOD TRACE-INTACT (NEGATIVE); URINE NITRATE Negative (NEGATIVE); URINE UROBILINOGEN 0.2 E.U/dL (0.2-1.0)
[2022-08-28 17:03] LABS: MUCOUS Present (NOT PRESENT); SQUAMOUS EPITHELIAL 0-2 /hpf (0-10); URINE BACTERIA Rare /hpf (NONE SEEN); URINE RBC 0-2 /hpf (0-2)
--- NOTE | 2022-08-28 17:46 | NUR ---
Patient arrived on unit at around 1130 this morning. Patient is alert and oriented x3. Patient is able to some of the questions but not all. He is using urinal for bathroom and voiding without difficulty. Complains pain on his knees. He is on room air and no complain of shortness of breath. Mostly sleepy throughout the day but easily arousable. Took all his meds but didn't eat food.
[2022-08-28 19:29] VITALS: BP 92/69; PULSE 78; TEMP 98.3
[2022-08-28 23:30] VITALS: BP 147/58; PULSE 69; TEMP 98.4
--- NOTE | 2022-08-29 02:20 | NUR ---
PATIENT ASSESSED AND GIVEN NIGHTLY MEDICATIONS. HE IS AOX4 WITH INTERMITTENT CONFUSIONA AND APHASIA. NO STOOL TONIGHT THUS FAR. NEPH TO SEE PATIENT TODAY. ON FLAGYL. NEURO CHECKS Q4H. CREA- 7.8. LETHARGIC BUT DID EAT DINNER LAST NIGHT. BLOOD GLUCOSE- 119. FALL RISK PROTOCAL. BED ALARM ACTIVE. BED IN LOWEST POSITION. CALL LIGHT IN REACH.
[2022-08-29 04:36] VITALS: BP 138/53; PULSE 65; TEMP 98.4
[2022-08-29 06:42] LABS: BASO # 0.1 K/mm3 (0.0-0.2); EOS # 0.5 K/mm3 (0.0-0.7); EOS % 7.4 % (0.0-4.0); GRAN # 3.6 K/mm3 (1.4-6.5); GRAN % 59.6 % (42.2-75.2); LYMPH # 1.3 K/mm3 (1.2-3.4); LYMPH % 21.8 % (20.0-51.0); MEAN CELL VOLUME 95 fl (80.0-100.0); MEAN CORPUSCULAR HGB CONC 33 g/dl (33.0-37.0); MEAN PLATELET VOLUME 10.4 fl (7.4-10.4); MONO # 0.6 K/mm3 (0.1-0.6); MONO % 9.7 % (1.7-9.3); PLATELET COUNT 182 K/mm3 (130-400); RED BLOOD COUNT 2.29 M/mm3 (4.20-5.60)
[2022-08-29 06:43] LABS: HEMATOCRIT 21.8 % (42.0-52.0); HEMOGLOBIN 7.1 g/dl (13.5-18.0); MEAN CORPUSCULAR HEMOGLOBIN 31 pg (27-31)
[2022-08-29 06:50] LABS: ALBUMIN 2.8 gm/dL (3.4-4.8); BILIRUBIN,TOTAL 0.4 mg/dL (0.2-1.2); CALCIUM 8.3 mg/dL (8.4-10.2); CREATININE, serum 6.31 mg/dL (0.72-1.25); POTASSIUM 4.5 mmol/L (3.5-4.5); TOTAL PROTEIN 5.6 gm/dL (6.2-8.1)
[2022-08-29 07:18] VITALS: BP 125/23; PULSE 60; TEMP 98.1
--- NOTE | 2022-08-29 07:57 | NUR ---
Shift assessment is done this morning. Patient is lying on bed. Woke up to void and voided without difficulty. Denies any pain or discomfort at this time. Will continue to monitor.
--- NOTE | 2022-08-29 09:25 | NUR ---
Initial visit; Patient thanked Hardwood Sawyer for looking in on him and offering encouragement and prayer for his legs and overall healing. Hardwood Sawyer did so and will keep Ed in her prayers.
[2022-08-29 11:50] VITALS: BP 146/52; PULSE 63; TEMP 98.4
--- NOTE | 2022-08-29 13:00 | NUR ---
Patient pulled out his IV that was in his left wrist. Started new on right wrist.
[2022-08-29 15:24] VITALS: BP 119/36; PULSE 60; TEMP 98.6
--- NOTE | 2022-08-29 16:20 | NUR ---
[employer]uler [employer] contacted [facility] returned case inspector Adrianne to collaborate with social service concerns for Patient, housing. Adrianne reports that APS is following Patient. She also reports that Patient is over-income for [facility] assistance however, does meet criteria for [place] due to being over 90% service connected for disability. Patient has chronic housing instability and lack of positive familial support. SW will follow treatment team for discharge needs for medical and social needs.
[2022-08-29 19:50] VITALS: BP 155/65; PULSE 62; TEMP 98.4
[2022-08-29 23:28] VITALS: BP 143/56; PULSE 62; TEMP 97.9
[2022-08-30] VITALS (10 sets, daily range): BP systolic 136–165; BP diastolic 46–78; PULSE 51–89; TEMP 97.6–98.4
[2022-08-30 06:43] LABS: BASO % 0.8 % (0.0-2.0); EOS # 0.3 K/mm3 (0.0-0.7); EOS % 5.1 % (0.0-4.0); GRAN # 3.1 K/mm3 (1.4-6.5); LYMPH # 1.2 K/mm3 (1.2-3.4); LYMPH % 24.4 % (20.0-51.0); MEAN CELL VOLUME 94 fl (80.0-100.0); MEAN CORPUSCULAR HGB CONC 32 g/dl (33.0-37.0); MEAN PLATELET VOLUME 10.5 fl (7.4-10.4); MONO # 0.4 K/mm3 (0.1-0.6); MONO % 8.5 % (1.7-9.3); PLATELET COUNT 185 K/mm3 (130-400); RED BLOOD COUNT 2.03 M/mm3 (4.20-5.60); REDCELL DISTRIBUTION WIDTH-CV 12.8 % (11.5-14.5)
[2022-08-30 06:49] LABS: MEAN CORPUSCULAR HEMOGLOBIN 30 pg (27-31)
[2022-08-30 06:50] LABS: HEMOGLOBIN 6.1 g/dl (13.5-18.0)
[2022-08-30 07:10] LABS: CREATININE, serum 5.58 mg/dL (0.72-1.25); POTASSIUM 4.2 mmol/L (3.5-4.5)
--- NOTE | 2022-08-30 07:46 | NUR ---
Attempt made to call critical Hgb to hospitalist-no answer. Will reattempt.
--- NOTE | 2022-08-30 10:56 | NUR ---
SW met with pt to clarify information. Pt confirmed currently homeless and stated , Jaylene Monroe [phone] has found a home for both of them and would hav that today. Pt reported this would be discharge plan. SW explained if this was not secured HH [facility] and [facility] would be options; pt acknowleged as an option. SW informed pt she would call spouse to discuss pending living arrangements.
--- NOTE | 2022-08-30 10:58 | NUR ---
At 909 am SW called pt's spouse Jaylene Monroe ([phone]) to clarify housing information. Jaylene explained she has secured a home for her and spouse but was awaiting "a lady" to drive her to the location and then she would know the address. Jaylene reports this is an apartment which will be under her and pt. Jaylene reported an important call coming in and requested to call SW back. DISCHARGE PLANS home with Jaylene with HH if needed
--- NOTE | 2022-08-30 11:45 | NUR ---
Blood transfusion started at this time.
--- NOTE | 2022-08-30 16:29 | NUR ---
Clinical referral sent to [place] at [facility] for snf to LTC under [facility].
--- NOTE | 2022-08-30 17:45 | NUR ---
Patient slept off an on this shift. Received one unit of blood with no adverse reactions. Repeat H/H due at 1800 and is ordered. Denied pain/nausea/shortness of breath. Had some periods of confusion. LUE restriction enforced. VS remained stable. Right forearm 20g flushes well. TELE reporting SR. Denies current needs. Call light in reach. Will monitor.
--- NOTE | 2022-08-30 17:55 | NUR ---
This nurse to room due to call from Tele stating patient had a HR in the low 40s. VS checked and stable. 150/68, HR 62, RR 18, Temp 98.4. Denies chest pain/shortness of breath/nausea. Will continue to monitor.
[2022-08-30 18:28] LABS: HEMATOCRIT 23.1 % (42.0-52.0); HEMOGLOBIN 7.8 g/dl (13.5-18.0)
--- NOTE | 2022-08-30 19:30 | NUR ---
Confused, very agitated, got out of bed- bed alarm going off, standing in the zheng- starting to walk to the exit sign-- states he needs to get out of here--states he is" so sick"-- talked with patient that I can give him medicine for nausea-- did take about 15 minutes to get him back to bed , was combative at one point-refused vital signs--eventually back to bed, alarm on, tried to call but no answer--did call another contact number and she did answer and will try to get the to call back to talk with patient-- he is upset did not come to see him today. Was give the Zofran IV as ordered.
--- NOTE | 2022-08-30 22:43 | NUR ---
Tele called that HR 45/min- pt assessed, no SOB, No chest pain, calm now, resting, no more nausea, , B/P stable,Manuela HARDWICK- will hold toprol
[2022-08-31 03:57] VITALS: BP 150/42; PULSE 61; TEMP 97.8
--- NOTE | 2022-08-31 05:26 | NUR ---
Did sleep fair-- Up around 0400 and wanted to do a walk in zheng, unsteady ,back to bed with alarm on, majority of the night tele remains german -did dip to 38/min for very few seconds- Manuela HARDWICK aware- mostly stayed around 45-50/min.
[2022-08-31 07:12] LABS: BASO # 0.1 K/mm3 (0.0-0.2); EOS # 0.3 K/mm3 (0.0-0.7); EOS % 5.5 % (0.0-4.0); GRAN # 2.9 K/mm3 (1.4-6.5); GRAN % 55.9 % (42.2-75.2); LYMPH # 1.4 K/mm3 (1.2-3.4); LYMPH % 27.1 % (20.0-51.0); MEAN CELL VOLUME 90 fl (80.0-100.0); MEAN CORPUSCULAR HGB CONC 33 g/dl (33.0-37.0); MEAN PLATELET VOLUME 10.2 fl (7.4-10.4); MONO # 0.5 K/mm3 (0.1-0.6); MONO % 9.9 % (1.7-9.3); PLATELET COUNT 174 K/mm3 (130-400); RED BLOOD COUNT 2.53 M/mm3 (4.20-5.60); REDCELL DISTRIBUTION WIDTH-CV 14.1 % (11.5-14.5)
[2022-08-31 07:14] LABS: HEMATOCRIT 22.8 % (42.0-52.0); HEMOGLOBIN 7.5 g/dl (13.5-18.0); MEAN CORPUSCULAR HEMOGLOBIN 30 pg (27-31)
[2022-08-31 07:15] VITALS: BP 155/50; PULSE 58; TEMP 97.9
[2022-08-31 07:15] LABS: CALCIUM 8.3 mg/dL (8.4-10.2); CREATININE, serum 5.24 mg/dL (0.72-1.25); POTASSIUM 4.4 mmol/L (3.5-4.5)
--- NOTE | 2022-08-31 08:47 | NUR ---
SHIFT ASSESSMENT COMPLETED. PATIENT IS ALERT AND ORIENTED X4, THOUGH RESTLESS AT TIMES AND REQUESTING TO CALL HIS . FREQUENTLY ATTEMPTING TO GET OUT OF BED. BED ALARM ON, FALL PRECAUTIONS IN PLACE. PATIENT DENIES NEEDS AT THIS TIME. CALL LIGHT WITHIN REACH.
[2022-08-31] MEDS ORDERED: NORVASC 5MG5 MG/TAB PO (08:54)
[2022-08-31 11:10] VITALS: BP 156/63; PULSE 50; TEMP 98
--- NOTE | 2022-08-31 12:51 | NUR ---
PATIENT HR 38-50 ON TELE. PATIENT SLEEPING, ASYMPTOMATIC, STATES HIS HR IS "SOMETIMES LOW." AUDREY UPDATED. NEW ORDER RECEIVED FOR EKG- RT CALLED.
[2022-08-31 15:31] VITALS: BP 161/59; PULSE 52; TEMP 98
--- NOTE | 2022-08-31 18:22 | NUR ---
PATIENT'S CHAIR ALARM NOTED TO BE GOING OFF. UPON ENTERING PATIENT'S ROOM, THIS RN NOTED PATIENT TOUCHING CHAIR ALARM. THIS RN ASKED PATIENT WHAT HE WAS DOING, TO WHICH HE REPLIED, "TURNING THAT DAMN THING OFF." THIS RN EDUCATED PATIENT ON IMPORTANCE OF CHAIR ALARM AND REQUESTED PATIENT NOT TURN OFF BED ALARM. PATIENT ESCORTED BACK TO CHAIR WITH CHAIR ALARM ON. DENIES NEEDS.
[2022-08-31 20:22] VITALS: BP 160/69; PULSE 52; TEMP 98.1
[2022-09-01] VITALS (11 sets, daily range): BP systolic 133–181; BP diastolic 45–97; PULSE 45–66; TEMP 98–98.3
--- NOTE | 2022-09-01 06:08 | NUR ---
PATIENTS AT 2054 REQUESTED BY PHONE CALL TO GIVE SOMETHING FOR PATIENTS ANXIETY/SLEEP, ASKED PATIENT IF HE WOULD LIKE SOMETHING FOR SLEEP PATIENT REPONDED WITH YES. CALLED JO[facility] ANTONIO WAS ABLE TO GET 9MG MELATONIN. OTHERWISE PATIENT ATTEMPTED TO GET OUT BED WITHOUT HELP SETTING THE ALARM OFF SEVERAL TIMES THROUGHOUT THE NIGHT. PATIENT THROUGHOUT NIGHT CONTINUED TO EXPRESS HIS CONCERNS ABOUT SEXUAL PERFORMANCE WITH HIS , PATIENT WAS TOLD BY THIS RN AND DYE WEIGHER HELPER THAT SUBJECT WAS UNCOMFORTABLE. PATIENT WAS OTHERWISE PLESENT AND WAS OBSERVED RESTING INBETWEEN VITALS TAKING.
[2022-09-01 06:33] LABS: MEAN CELL VOLUME 88 fl (80.0-100.0); MEAN CORPUSCULAR HGB CONC 34 g/dl (33.0-37.0); MEAN PLATELET VOLUME 10.2 fl (7.4-10.4); PLATELET COUNT 167 K/mm3 (130-400); RED BLOOD COUNT 2.37 M/mm3 (4.20-5.60); REDCELL DISTRIBUTION WIDTH-CV 13.9 % (11.5-14.5)
[2022-09-01 06:42] LABS: CREATININE, serum 4.91 mg/dL (0.72-1.25); POTASSIUM 4.2 mmol/L (3.5-4.5)
[2022-09-01 06:44] LABS: HEMATOCRIT 20.9 % (42.0-52.0); HEMOGLOBIN 7.1 g/dl (13.5-18.0); MEAN CORPUSCULAR HEMOGLOBIN 30 pg (27-31)
[2022-09-01 07:51] LABS: EOSINOPHIL 5 % (0-4); LYMPHOCYTE 31 % (20.0-51.0); NEUTROPHILS 61 % (42.0-75.2); PLATELET ESTIMATE NORMAL (NORMAL)
--- NOTE | 2022-09-01 08:22 | NUR ---
Per [place] at [facility], patient is clinically accepted and are awaiting insurance auth. Updated therapy notes sent to [place].
[2022-09-01 11:14] LABS: INR 1.1 (0.8-3.0); PROTHROMBIN TIME 12.9 SECONDS (9.7-12.8)
--- NOTE | 2022-09-01 12:06 | NUR ---
SEE MERGE FOR ALL MEDICATIONS INTERVEN TIONS AND VITALS. pROVIDER AWARE OF PATIENTE NPO STATUS SINCE 8AM, PT HAD BREAKFAST THIS AM. PROVIDER AWARE OF PATIENT SQ HEPARINE 5000UI. PATIENT AM LABS SHOWN DOWN TRENDING HEMAGLOBIN OF 7.1. PROVIDER AWARE.
--- NOTE | 2022-09-01 14:00 | NUR ---
PATIENT ARRIVED IN STABLE CONDITION FROM PROCEDURE. BOTH DRESSINGS CDI, PATIENT PROVIDED EXTRA EDUCATION ON POST PACEMAKER IMPLANTATION DIRECTIONS. POST OP VITALS INITIATED. PATIENT VOIDED 650CC OF CLEAR YELLOW URINE. BED ALARM ON, CALL LIGHT WITHIN REACH.
--- NOTE | 2022-09-01 17:30 | NUR ---
PATIENT RESTING IN BED, BED ALARM ON. PATIENT DENIES ANY NEEDS AT THIS TIME. PATIENT COMPLAINING OF SOME R SHOULDER PAIN/DISCOMFORT. PAIN MEDICATION GIVEN. ICE TO PACER SITE REFRESHED. DRESSER TO BOTH PROCEDURE SITES CDI. CALL LIGHT WTIHIN REACH.
[2022-09-01 18:20] LABS: HEMATOCRIT 23.4 % (42.0-52.0); HEMOGLOBIN 7.8 g/dl (13.5-18.0)
[2022-09-02] VITALS (7 sets, daily range): BP systolic 141–175; BP diastolic 64–84; PULSE 59–67; TEMP 97.5–98.7
--- NOTE | 2022-09-02 02:48 | NUR ---
2050 pt assessed, alert and oriented, with rt arm in sling post pacemaker placement some pain to the site has ice pack on site. pt sitting on side of bed eating dinner, breathing unlabored, vss. patient able to get prn pain medication given @0012 for knee and pacemaker site pain. patient then observed sleeping with unlabored equal chest rise inbetween vitals.
[2022-09-02 06:44] LABS: BASO # 0.1 K/mm3 (0.0-0.2); BASO % 0.8 % (0.0-2.0); EOS # 0.4 K/mm3 (0.0-0.7); EOS % 4.8 % (0.0-4.0); GRAN # 4.7 K/mm3 (1.4-6.5); GRAN % 63.2 % (42.2-75.2); LYMPH # 1.7 K/mm3 (1.2-3.4); MEAN CELL VOLUME 92 fl (80.0-100.0); MEAN CORPUSCULAR HGB CONC 33 g/dl (33.0-37.0); MEAN PLATELET VOLUME 10.5 fl (7.4-10.4); MONO # 0.6 K/mm3 (0.1-0.6); MONO % 7.8 % (1.7-9.3); PLATELET COUNT 181 K/mm3 (130-400); RED BLOOD COUNT 2.37 M/mm3 (4.20-5.60); REDCELL DISTRIBUTION WIDTH-CV 13.8 % (11.5-14.5)
[2022-09-02 06:51] LABS: HEMATOCRIT 21.8 % (42.0-52.0); HEMOGLOBIN 7.1 g/dl (13.5-18.0); MEAN CORPUSCULAR HEMOGLOBIN 30 pg (27-31)
[2022-09-02 06:57] LABS: CALCIUM 8.1 mg/dL (8.4-10.2); CREATININE, serum 4.77 mg/dL (0.72-1.25)
--- NOTE | 2022-09-02 08:04 | NUR ---
PM DOWNLOAD COMPLETED.
--- NOTE | 2022-09-02 12:07 | NUR ---
PATIENT AWAKE AND ALERT, RESTING IN BED. ICE TO PACER SITE. BED ALARM ON. PATIENT DENIES ANY NEEDS OR COMPLAINTS AT THIS TIME.
[2022-09-03 03:37] VITALS: BP 150/83; PULSE 65; TEMP 98.8
--- NOTE | 2022-09-03 06:06 | NUR ---
Pt assessment completed around 2029. A&O x4. Pain on right shoulder and knees is rated at 8/10. [place] was given around 2229. Dressings are CDI. RFA INT is CDI. Tele on, and leads were constantly monitored due to signal interference. No further needs or requests were made. Pt slept almost through entire night. Belongings and call light are within reach.
[2022-09-03 06:40] LABS: BASO # 0.1 K/mm3 (0.0-0.2); BASO % 0.8 % (0.0-2.0); EOS # 0.4 K/mm3 (0.0-0.7); EOS % 5.3 % (0.0-4.0); GRAN # 4.7 K/mm3 (1.4-6.5); GRAN % 60.7 % (42.2-75.2); LYMPH # 1.9 K/mm3 (1.2-3.4); LYMPH % 24.2 % (20.0-51.0); MEAN CELL VOLUME 91 fl (80.0-100.0); MEAN CORPUSCULAR HGB CONC 33 g/dl (33.0-37.0); MEAN PLATELET VOLUME 10.4 fl (7.4-10.4); MONO # 0.7 K/mm3 (0.1-0.6); MONO % 8.5 % (1.7-9.3); PLATELET COUNT 187 K/mm3 (130-400); RED BLOOD COUNT 2.53 M/mm3 (4.20-5.60)
[2022-09-03 06:43] LABS: HEMATOCRIT 23.1 % (42.0-52.0); HEMOGLOBIN 7.6 g/dl (13.5-18.0); MEAN CORPUSCULAR HEMOGLOBIN 30 pg (27-31)
[2022-09-03 06:58] LABS: CALCIUM 8.2 mg/dL (8.4-10.2); CREATININE, serum 4.39 mg/dL (0.72-1.25); POTASSIUM 3.9 mmol/L (3.5-4.5)
[2022-09-03 07:24] VITALS: BP 154/78; PULSE 58; TEMP 98.8
--- NOTE | 2022-09-03 08:00 | NUR ---
Patient is resting in bed, alert and oriented x 4, VSS, states constant pain in her shoulders and knees. PRN to be provided. Telemetry iin place, assessment completed. No further needs at this time. Call light within reach.
[2022-09-03 11:23] VITALS: BP 156/69; PULSE 61; TEMP 98
[2022-09-03 16:00] VITALS: BP 151/85; PULSE 67; TEMP 98.4
--- NOTE | 2022-09-03 19:13 | NUR ---
Patient has been more active, asked to be assissted to walk along the halls, eating well, changed from room 316 to 355 to monitor him closely from the nursing station. Report given to night RN.
[2022-09-03 20:00] VITALS: BP 172/76; PULSE 64; TEMP 98
[2022-09-03 23:48] VITALS: BP 144/55; PULSE 64; TEMP 97.9
[2022-09-04 03:34] VITALS: BP 164/76; PULSE 61; TEMP 98.2
[2022-09-04 07:14] VITALS: BP 149/68; PULSE 66; TEMP 98.8
--- NOTE | 2022-09-04 07:34 | NUR ---
Pt asleep upon entering room. Morning medications administered per eMAR. Shift assessment completed. Neuro checks completed. Telemetry remains on. INT in R forearm patent, no edema or redness; coban in place. No request at this time. Call light within reach. Fall precautions in place.
[2022-09-04] MEDS ORDERED: CEPHALEXIN500 M1 PO (07:51)
--- NOTE | 2022-09-04 09:17 | NUR ---
DEVONTE contacted [facility] to follow up on auth. The customer response representative reports that they are requesting a [id number], due to 1200 today. DEVONTE notified the hospitalist and provided him with the phone number. DEVONTE updated [place] at [employer]
[2022-09-04 11:08] VITALS: BP 146/70; PULSE 60; TEMP 98.2
--- NOTE | 2022-09-04 15:09 | NUR ---
The hospitalist notified DEVONTE that the [id number] was done and insurance is denying SNF. DEVONTE notified [place] at [facility] and inquired about a VA contract, if service connected. [facility] would need a contract. DEVONTE contacted Adrianne, [facility] social media community manager, to inquire about a contract. Adrianne states that the patient does qualify for a VA contract assisted. She requests the patient's records to start the process and states that turn around time for a contract can be anywhere from 24-48 hours. DEVONTE notified [place] at [facility] of this. Awaiting VA contract.
[2022-09-04 15:34] VITALS: BP 157/66; PULSE 67; TEMP 98.9
[2022-09-04 19:16] VITALS: BP 138/62; PULSE 76; TEMP 97.9
[2022-09-04 23:58] VITALS: BP 140/63; PULSE 61; TEMP 98
[2022-09-05 04:13] VITALS: BP 138/56; PULSE 61; TEMP 97.5
[2022-09-05 06:46] LABS: BASO # 0.1 K/mm3 (0.0-0.2); BASO % 0.9 % (0.0-2.0); EOS # 0.2 K/mm3 (0.0-0.7); EOS % 3.3 % (0.0-4.0); GRAN # 4.2 K/mm3 (1.4-6.5); GRAN % 63.2 % (42.2-75.2); LYMPH # 1.6 K/mm3 (1.2-3.4); LYMPH % 23.9 % (20.0-51.0); MEAN CELL VOLUME 89 fl (80.0-100.0); MEAN CORPUSCULAR HGB CONC 34 g/dl (33.0-37.0); MEAN PLATELET VOLUME 10.5 fl (7.4-10.4); MONO # 0.6 K/mm3 (0.1-0.6); MONO % 8.4 % (1.7-9.3); PLATELET COUNT 196 K/mm3 (130-400); RED BLOOD COUNT 2.49 M/mm3 (4.20-5.60); REDCELL DISTRIBUTION WIDTH-CV 14.2 % (11.5-14.5)
[2022-09-05 06:47] LABS: HEMATOCRIT 22.1 % (42.0-52.0); HEMOGLOBIN 7.5 g/dl (13.5-18.0); MEAN CORPUSCULAR HEMOGLOBIN 30 pg (27-31)
[2022-09-05 07:06] LABS: CALCIUM 8.3 mg/dL (8.4-10.2); CREATININE, serum 4.44 mg/dL (0.72-1.25); POTASSIUM 3.9 mmol/L (3.5-4.5)
[2022-09-05 07:40] VITALS: BP 148/67; PULSE 68; TEMP 98.3
--- NOTE | 2022-09-05 08:05 | NUR ---
Pt is laying in bed upon entry. Morning medications administered per eMAR. Shift assessment completed. Telemetry remains on. INT in R forearm patent, coban in place. No request at this time. Call light within reach. Fall precautions in place.
[2022-09-05 11:17] VITALS: BP 126/63; PULSE 61; TEMP 98.1
--- NOTE | 2022-09-05 13:21 | NUR ---
Adrianne [facility] medical social worker, notified DEVONTE that the contract was approved for the patient to go to [facility] with an admit day starting tomorrow, 09/06. They will get in touch with [facility]. DEVONTE notified and faxed updates to [place] at [facility]. Washington reports that they will be good to accept the patient tomorrow. DEVONTE attempted to contact and update the patient's , Jaylene. Jaylene did not answer and her voicemail box is not set up yet. DEVONTE unable to leave a message. *Discharge plan: [facility] SNF*
--- NOTE | 2022-09-05 15:16 | NUR ---
The patient's , Jaylene, arrived to the hospital to visit the patient. SW met with Jaylene and updated her on the discharge plan. Jaylene is in agreement to the plan. SW presented and read the IM form outloud to her. Jaylene verbalized understanding and signed the form. SW provided her with a copy.
[2022-09-05 15:33] VITALS: BP 149/80; PULSE 79; TEMP 97.3
[2022-09-05 20:54] VITALS: BP 135/56; PULSE 68; TEMP 97.9
[2022-09-05 23:23] VITALS: BP 148/65; PULSE 65; TEMP 97.7
--- NOTE | 2022-09-06 02:07 | NUR ---
Received report from day shift nurse. Pt is sitting up in recliner in the room with call light within reach.
[2022-09-06 04:35] VITALS: BP 131/68; PULSE 66; TEMP 98.7
--- NOTE | 2022-09-06 07:24 | NUR ---
Pt is A&OX4 and follows commands. Pt walks to bathroom with a walker with standby assist. Pt pressed the call light to go the the bathroom and got up and was walking to bathroom before nurse got to the room. Nurse educated pt about waiting for someone to be in the room to make sure he does not fall. Pt's pulses were present and the dressings on the pt's chest were dry and intact. Pt denied pain throughout the whole shift. Gave report to day shift nurse.
--- NOTE | 2022-09-06 08:20 | NUR ---
Pt sitting up in chair eating breakfast upon this nurse's entry to room. A&Ox4. Pleasant and cooperative demeanor. No distress noted. AM medications administered PO w/o difficulty. Shift assessment completed. Ecchymosis noted to right chest radiating to right shoulder and right upper ewxtremity. Color variates from dark purple to yellowing. Pt denies pain. Dressings in place to loop recorder placement and pacemaker placement sites. Drsgs are dry and intact. Pt also has a dark purple quart sized area of ecchymosis on the LUE. Pt is able to ambulate w/o difficulty w/ assistance. Pt denies any N/V/D or difficulty w/ voiding. Pt has no complaints or concern. Call light in reach.
--- NOTE | 2022-09-06 10:54 | NUR ---
The patient is to discharge today, 09/06, to [facility] for a skilled stay. Transportation was scheduled around 1600, via [facility]. SW informed the patient's , Jaylene, and the RN of the time. No additional needs at this time.
[2022-09-06 12:00] VITALS: BP 141/71; PULSE 75; TEMP 97.7
--- NOTE | 2022-09-06 12:32 | NUR ---
Pt sitting in recliner eating his lunch upon this nurse's entry to room. Pt is alert. This nurse inquires about pain. Pt reports that he "always" has 10/10 pain to bilateral knees aching. He also reports 8/10 pain to right shoulder aching d/t procedure. He cont to decline pharmacological comfort measures. Pt is aware of discharge instructions and is awaiting transportation to [facility]. This nurse attempted to call report to [facility] @ [phone]. No answer. LVPhilip w/ call back number.
--- NOTE | 2022-09-06 13:30 | NUR ---
Pt in recliner resting. No distress noted. Telemetry and PIV removed w/o difficulty. [facility] transportation present to transfer pt to [facility]. Pt has no complaints or concerns. Pt transferred to [facility] at 1320. This nurse attempted to call report to [facility] nurse at 1325. Spoke w/ Shikha at [facility]. Report given - no questions.
== END 2022-09-06 13:20 | DRG 982 ==
LOC: COL.ER 08:26 → MEDICAL 10:12
PROVIDERS: Emergency Medicine; Internal Medicine Nephrology; Physician Assistant; Registered Nurse; Student in an Organized Health Care Education/Training Program; ADMIT Internal Medicine
PROC: 0JH606Z Insertion of Pacemaker, Dual Chamber into Chest Subcutaneous Tissue and Fascia, Open Approach (ICD-10-PCS; principal; 2022-09-01)
PROC: 0JH602Z Insertion of Monitoring Device into Chest Subcutaneous Tissue and Fascia, Open Approach (ICD-10-PCS; 2022-09-01)
PROC: 02H63JZ Insertion of Pacemaker Lead into Right Atrium, Percutaneous Approach (ICD-10-PCS; 2022-09-01)
PROC: 02HK3JZ Insertion of Pacemaker Lead into Right Ventricle, Percutaneous Approach (ICD-10-PCS; 2022-09-01)
DX: N17.9 Acute kidney failure, unspecified (principal); E87.20 Acidosis, unspecified; I50.22 Chronic systolic (congestive) heart failure; I13.0 Hypertensive heart and chronic kidney disease with heart failure and stage 1 through stage 4 chronic kidney disease, or unspecified chronic kidney disease; I69.351 Hemiplegia and hemiparesis following cerebral infarction affecting right dominant side; R19.7 Diarrhea, unspecified; R00.1 Bradycardia, unspecified; D63.1 Anemia in chronic kidney disease; I25.10 Atherosclerotic heart disease of native coronary artery without angina pectoris; E78.5 Hyperlipidemia, unspecified; E11.22 Type 2 diabetes mellitus with diabetic chronic kidney disease; R13.10 Dysphagia, unspecified; J44.9 Chronic obstructive pulmonary disease, unspecified; G47.33 Obstructive sleep apnea (adult) (pediatric); N40.0 Benign prostatic hyperplasia without lower urinary tract symptoms; F03.90 Unspecified dementia, unspecified severity, without behavioral disturbance, psychotic disturbance, mood disturbance, and anxiety; I69.322 Dysarthria following cerebral infarction; E87.5 Hyperkalemia; I69.391 Dysphagia following cerebral infarction; I69.392 Facial weakness following cerebral infarction; Z95.5 Presence of coronary angioplasty implant and graft; Z79.899 Other long term (current) drug therapy; Z79.82 Long term (current) use of aspirin; Z79.01 Long term (current) use of anticoagulants; Z79.51 Long term (current) use of inhaled steroids; Z99.3 Dependence on wheelchair; Z87.891 Personal history of nicotine dependence; N18.4 Chronic kidney disease, stage 4 (severe); I25.2 Old myocardial infarction
CPT/HCPCS: C1785; C1894; C1898; J0690; J0696; J1644; J2250; J2405; J3010; J7030; P9016

== ENCOUNTER 2023-04-27 10:53 | Emergency (ER) | payer OTHER ==
[~2023-04-27] VITALS: Ht 188 cm; Wt 62.7 kg
[~2023-04-27 10:53] MED LIST changes: +CEPHALEXIN500 M1 PO; +CHERATUSSIN AC120 ML PO; +NORVASC 5MG5 MG/TAB PO; +ZITHROMAX Z PA250 MG PO
[2023-04-27] MEDS ORDERED: NORCO 325 MG-51 TAB PO (12:36)
[2023-04-27 14:14] VITALS: BP 158/80; PULSE 67; TEMP 97.8
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
== END 2023-04-27 14:14 | disposition home or self-care (01) ==
LOC: COL.ER 10:53
DX: M25.512 Pain in left shoulder (principal); Z87.891 Personal history of nicotine dependence; Z91.148 Patient's other noncompliance with medication regimen for other reason

== ENCOUNTER 2023-11-29 12:05 | Emergency (ER) | payer OTHER ==
[~2023-11-29] VITALS: Ht 188 cm; Wt 109.1 kg
[~2023-11-29 12:05] MED LIST changes: +COREG 6.256.25 MG/TA PO; +COREG12.5 MG PO; +FERROUS FUMARA324 MG PO; +FERROUS GL325 MG/TAB PO; +LASIX 20MG TABL20 MG PO; +NITROSTAT0.4 MG/TAB SL; +NORCO 325 MG-101 TAB PO; +PRINIVIL5 MG PO; +PROTONIX 40MG T40 MG PO; +VITAMIN C500 MG PO
[2023-11-29 12:15] VITALS: TEMP 97.7
[2023-11-29 14:35] VITALS: BP 161/74; PULSE 72
== END 2023-11-29 14:37 | disposition home or self-care (01) ==
LOC: COL.ER 12:05
DX: Z46.6 Encounter for fitting and adjustment of urinary device (principal)

== ENCOUNTER 2023-12-08 15:24 | Emergency (ER) | payer OTHER ==
[~2023-12-08] VITALS: Ht 188 cm; Wt 104.5 kg
[2023-12-08 15:27] VITALS: TEMP 97.9
[2023-12-08 16:39] VITALS: BP 128/96; PULSE 88
== END 2023-12-08 16:40 | disposition home or self-care (01) ==
LOC: COL.ER 15:24
DX: T83.84XA Pain due to genitourinary prosthetic devices, implants and grafts, initial encounter (principal)

== ENCOUNTER 2024-02-10 21:38 | Emergency (ER) | payer OTHER ==
[~2024-02-10] VITALS: Ht 188 cm; Wt 104.5 kg
[2024-02-10 21:39] VITALS: TEMP 97.5
[2024-02-10 22:33] VITALS: BP 163/89; PULSE 60
== END 2024-02-10 22:34 | disposition home or self-care (01) ==
LOC: COL.ER 21:38
DX: M25.511 Pain in right shoulder (principal); Z85.46 Personal history of malignant neoplasm of prostate; Z95.5 Presence of coronary angioplasty implant and graft; Z87.891 Personal history of nicotine dependence